=== PATIENT | female | born 1995 | race Caucasian/White ===

== ENCOUNTER 2019-11-28 10:00 | Emergency (ER) | payer BC, SELFPAY ==
--- OUTSIDE RECORDS SUMMARY | 2019-11-28 10:02 | XMS REPORT ---
:1995 Author Organization [facility] Address [address] [place] [address] Dr. Peters [address] [place] [address] Care Team Providers Name Role Phone Unavailable Unavailable Unavailable Problems This patient has no known problems. Allergies, Adverse Reactions, Alerts This patient has no known allergies or adverse reactions. Medications This patient has no known medications.
--- OUTSIDE RECORDS SUMMARY | 2019-11-28 10:02 | XMS REPORT | Summary of Care ---
:1995 Author Organization [facility] - Health Address [address] [place] [address] Care Team Providers Name Role Phone Shireen Bob Primary Care Provider Encounter Details Date Type Department Care Team Description 05/16/2019 Orders Only [facility] Doctor Unassigned, No [address] [facility] Name [place] [id number] [address] [place] [phone] Allergies Active Allergy Reactions Severity Noted Date Comments Morphine Hives, Swelling 11/06/2011 documented as of this encounter (statuses as of 05/16/2019) Medications Medication Sig Dispensed Refills Start Date End Date Status levonorgestrel by Intrauterine 0 Active (MIRENA INTRAUTERINE) route. documented as of this encounter (statuses as of 05/16/2019) Active Problems Problem Noted Date Hematoma and contusion of liver 11/06/2011 Overview: ICD10 Diagnosis Term Manager Clinical Research Utility Liver mass, left lobe 11/06/2011 documented as of this encounter (statuses as of 05/16/2019) Social History Tobacco Use Types Packs/Day Years Used Date Never Smoker Smokeless Tobacco: Never Used Alcohol Use Drinks/Week oz/Week Comments Yes occasional Sex Assigned at Date Recorded Not on file Job Start Date Occupation Industry Not on file Not on file Not on file Travel History Travel Start Travel End No recent travel history available. documented as of this encounter Last Filed Vital Signs Not on filedocumented in this encounter Plan of Treatment Health Maintenance Due Date Last Done Comments HPV VACCINES (1 - Female 3-dose 2008 series) DTaP,Tdap,and Td Vaccines (1 - 2012 Tdap) PAP SMEAR 2014 INFLUENZA VACCINE 06/10/2019 PNEUMOCOCCAL 0-64 YEARS COMBINED Aged Out No longer eligible based on SERIES patient's age to complete this topic documented as of this encounter Procedures Procedure Name Priority Date/Time Associated Diagnosis Comments NO SHOW OR MISSED Routine 05/16/2019 8:24 AM APPOINTMENT POLICY CDT ACKNOWLEDGEMENT documented in this encounter Results Not on filedocumented in this encounter
--- OUTSIDE RECORDS SUMMARY | 2019-11-28 10:02 | XMS REPORT | Summary of Care ---
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 Cuco OREILLY Well woman exam [address] [place] [address] [place] [phone] Allergies Active Allergy Reactions Severity Noted Date Comments Morphine Hives, Swelling 11/06/2011 documented as of this encounter (statuses as of 05/16/2019) Medications Medication Sig Dispensed Refills Start Date End Date Status levonorgestrel by Intrauterine 0 Active (MIRENA INTRAUTERINE) route. documented as of this encounter (statuses as of 05/16/2019) Active Problems Problem Noted Date Hematoma and contusion of liver 11/06/2011 Overview: ICD10 Diagnosis Term Architecture Faculty Member Utility Liver mass, left lobe 11/06/2011 documented as of this encounter (statuses as of 05/16/2019) Immunizations Name Administration Dates Next Due Tdap 08/16/2018 documented as of this encounter Social History Tobacco Use Types Packs/Day Years [...] of this encounter Last Filed Vital Signs Vital Sign Reading Time Taken Comments Blood Pressure 108/75 05/16/2019 8:50 AM CDT Pulse 80 05/16/2019 8:50 AM CDT Temperature 36.7 C (98.1 F) 05/16/2019 8:50 AM CDT Respiratory Rate - - Oxygen Saturation 98% 05/16/2019 8:50 AM CDT Inhaled Oxygen Concentration - - Weight 59.9 kg (132 lb) 05/16/2019 8:50 AM CDT Height 170.2 cm (5' 7") 05/16/2019 8:50 AM CDT Body Mass Index 20.67 05/16/2019 8:50 AM CDT documented in this encounter Patient Instructions Patient InstructionsShireen Bob PA - 05/16/2019 8:20 AM CDT Understanding USDA MyPlate The USDA (U.S. Department of Agriculture) has guidelines to help you make healthy food choices. These are called MyPlate. MyPlate shows the food groups that make up healthy meals using the image of a place setting. Before you eat, think about the healthiest choices for what to put onto your plate or into your cup or bowl. To learn more about building a healthy plate, visit www.choosemyplate.gov. The food groups Fruits. Any fruit or 100% fruit juice counts as part of the Fruit Group. Fruits may be fresh, canned, frozen, or dried, and may be whole, cut-up, or pureed. Make half your plate fruits and vegetables. Vegetables. Any vegetable or 100% vegetable juice counts as a member of the Vegetable Group. Vegetables may be fresh, frozen, canned, or dried. They can be served raw or cooked and may be whole, cut-up, or mashed. Make half your plate fruits and vegetables. Grains. All foods made from grains are part of the Grains Group. These include wheat, rice, oats,cornmeal, and barley such as bread, pasta, oatmeal, cereal, tortillas, and grits. Grains should be no more than a quarter of your plate. At least half of your grains should be whole grains. Protein. This group includes meat, poultry, seafood, beans and peas, eggs, processed soy products(like tofu), nuts (including nut butters), and seeds. Make protein choices no more than a quarter ofyour plate. Meat and poultry choices should be lean or low fat. Dairy. All fluid milk products and foods made from milk that contain calcium , like yogurt and cheese, are part of the Dairy Group. (Foods that have little calcium, such as cream, butter, and cream cheese, are not part of the group.) Most dairy choices should be low-fat or fat-free. Oils. These are fats that are liquid at room temperature. They include canola , corn, olive, soybean, and sunflower oil. Foods that are mainly oil include mayonnaise, certain salad dressings, and soft margarines. You should have only 5 to 7 teaspoons of oils a day. You probably already get this muchfrom the food you eat. Date Last Reviewed: 05/10/201719998089-8868 The [employer]. [address] [place] [address]. All rights reserved. This information is not intended as a substitute for professional medical care. Always follow your healthcare professional's instructions. Aerobic Exercise for a Healthy Heart Exercise is a lot more than an energy booster and a stress reliever. It also strengthens your heart muscle, lowers your blood pressure and cholesterol, and corona calories. It can also improve your resting muscle tone, and your mood. Choose an activity that makes your heart and lungs work harder than they do when you rest or walk normally. This aerobic exercise can improve the way your heart and other muscles use oxygen. Make it fun by exercising with a friend and choosing an activity you enjoy. Here are some ideas: Walking Swimming Bicycling Stair climbing Dancing Jogging Gardening Remember, some activity is better than none. Exercise regularly If you havent been exercising regularly, get your doctors OK first. Then start slowly. Here are some tips: Begin exercising 3 times a week for 5 to 10minutes at a time. When you feel comfortable, add a few minutes each session. Slowly build up to exercising 3 to 4 times each week. Each session should last for 40 minutes, onaverage, and involve moderate- to vigorous-intensity physical activity. If you have been given nitroglycerin, be sure to carry it when you exercise. If you get chest pain (angina) when youre exercising, stop what youre doing, take your nitroglycerin, and call your doctor. Date Last Reviewed: 03/11/201619994888-7851 [employer]. [address] [place] [address]. All rights reserved. This information is not intended as a substitute for professional medical care. Always follow your healthcare professional's instructions. documented in this encounter Progress Notes Shireen Bob PA - 05/16/2019 8:20 AM CDT Cc: Chief Complaint Patient presents with ANNUAL EXAM Lili Ortiz is a 23 year old female. Annual wellness visit: Describes diet: Am- scrambled eggs, toast Lunch- sandwiches Dinner- chicken, steak; sides: veggies, mac n cheese Exercise frequency: No set routine. Last STEREO OPERATOR exam/pap smear: 5 years ago. Wood Strip Block Floor Installer: Dr. Batista. LMP: 05/14/19. Contraception: IUD. STD screening consent?: No Last mammogram: never Last colonoscopy: never. Candidate for Hep C screening based on year?: no. Candidate for shingles vaccine?: no. Candidate for pneumococcal vaccine?: no. Candidate for Tdap?: 08/2018 Domestic/relationship violence screen is negative Depression screen: PHQ-2 Little interest or pleasure in doing things: Not at all Feeling down, depressed, or hopeless: Not at all PHQ-2 Score (_/6): 0 PHQ-2 Scoring Interpretation: Negative screen Accepts referral for skin cancer screening exam with a Lavender Farm Worker?: no Patient needing form completed for [facility] health program (sonography). Denies pmh of CVD, asthma, diabetes, epilepsy, anxiety/depression Needing to confirm immunization records and required booster testing. PPD: 11/02/18 Titer testin: Negative Hb surface antibody test Negative rubella, negative measles, negative mumps Positive Varicella ab. Went to health department and received her tdap, hepatitis b and mmr vaccination. Patient will bringin vaccination records. Allergies Lili is allergic to morphine. Medications Outpatient Medications Prior to Visit Medication Sig Dispense Refill levonorgestrel (MIRENA INTRAUTERINE) by Intrauterine route. No facility-administered medications prior to visit. Histories History reviewed. No pertinent past medical history. History reviewed. No pertinent surgical history. Social History Socioeconomic History Marital status: Single Spouse name: Not on file Number of children: Not on file Years of education: Not on file Highest education level: Not on file Occupational History Not on file Social Needs Financial resource strain: Not on file Food insecurity: Worry: Not on file Inability: Not on file Transportation needs: Medical: Not on file Non-medical: Not on file Tobacco Use Smoking status: Never Smoker Smokeless tobacco: Never Used Substance and Sexual Activity Alcohol use: Yes Comment: occasional Drug use: No Sexual activity: Yes control/protection: IUD Lifestyle Physical activity: Days per week: Not on file Minutes per session: Not on file Stress: Not on file Relationships Social connections: Talks on phone: Not on file Gets together: Not on file Attends adventist service: Not on file Active member of club or organization: Not on file Attends meetings of clubs or organizations: Not on file Relationship status: Not on file Intimate partner violence: Fear of current or ex partner: Not on file Emotionally abused: Not on file Physically abused: Not on file Forced sexual activity: Not on file Other Topics Concern Not on file Social History Narrative Lives at home with daughter, parents, brothers. 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 HENT: Negative for ear pain, postnasal drip, rhinorrhea, sinus pressure, sneezing, sore throat, trouble swallowing and voice change. Eyes: Negative for pain, discharge, redness, itching and visual disturbance. Respiratory: Negative for cough, chest tightness, shortness of breath and wheezing. Cardiovascular: Negative for chest pain, palpitations and leg swelling. Gastrointestinal: Negative for abdominal pain, constipation, diarrhea, nausea and vomiting. Genitourinary: Negative for bladder incontinence, dysuria, urgency, polyuria, frequency, hematuria, flank pain and difficulty urinating. Musculoskeletal: Negative for arthralgias, back pain, gait problem, joint swelling and myalgias. Skin: Negative for color change, pallor, rash and wound. Neurological: Negative for dizziness, speech difficulty, weakness, light- headedness and headaches. Psychiatric/Behavioral: Negative for agitation, behavioral problems, confusion, decreased concentration, dysphoric mood, self-injury and suicidal ideas. The patient is not nervous/anxious. Hematological: Negative for cold intolerance and heat intolerance. Endocrine: Negative for goiter, hair loss, cold intolerance, heat intolerance, polydipsia, polyphagia, polyuria, weight gain and weight loss. Vital Signs BP 108/75 | Pulse 80 | Temp 36.7 C (98.1 F) (Tympanic) | Ht 5' 7" (1.702 m) | Wt 132 lb (59.9 kg) | SpO2 98% | BMI 20.67 kg/m Physical Exam Constitutional: She is oriented to person, place, and time. She appears well- developed and well-nourished. No distress. HENT: Head: Normocephalic and atraumatic. Right Ear: External ear normal. Left Ear: External ear normal. Nose: Nose normal. Mouth/Throat: Oropharynx is clear and moist. Eyes: Conjunctivae are normal. Neck: Normal range of motion. Neck supple. Carotid bruit is not present. No thyromegaly present. Cardiovascular: Normal rate, regular rhythm, normal heart sounds and intact distal pulses. Pulmonary/Chest: Effort normal and breath sounds normal. Abdominal: Soft. Bowel sounds are normal. She exhibits no distension. There is no tenderness. There is no rebound and no guarding. Musculoskeletal: Normal range of motion. She exhibits no edema or tenderness. Lymphadenopathy: She has no cervical adenopathy. Neurological: She is alert and oriented to person, place, and time. Skin: Skin is warm and dry. She is not diaphoretic. Psychiatric: She has a normal mood and affect. Her behavior is normal. Nursing note and vitals reviewed. Assessment/Plan Annual physical exam (primary encounter diagnosis) Plan: CBC WITH DIFF, COMP. METABOLIC PANEL (52192), LIPID PANEL (47838)(TOTAL CHOLESTEROL, TRIGLYCERIDES, HDL), CBC WITH DIFFERENTIAL Patient needing form completed for school. Need confirmatio of completing MMR, hepatitis B vaccination in order to fill out. Patient agrees to return with records. Encouraged annual eye exams Encouraged twice yearly dental exams Recommend Heart healthy diet: low fat/carb/sugar diet; increase lean meat- chicken, turkey, fish; increase vegetables/fruits ( still be careful because elevated sugar level) Recommend Heart Healthy Exercise: total of 150 minutes of cardio: walking, swimming, hiking, biking every week. 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 Er precautions given. Pt reportsunderstanding and agrees. rtc if s/s worsen or do not improve; Plan of care, desired health behaviors, goals, Ddx, & any prescribed or OTC medications discussed with patient. Education resources & self management tools provided and reviewed with AVS. Patient/guardian/family verbalized understanding & agrees to plan of care. Barriers to care: NONE Ability to manage care: Good This visit did not involve counseling and coordination that comprised more than 50% of the visit time.Electronically signed by Shireen Bob PA at 2018 11:50 AM CDTdocumented in this encounter Plan of Treatment Name Type Priority Associated Diagnoses Order Schedule CBC WITH DIFF LAB Routine Annual physical exam Ordered: 05/16/2019 COMP. METABOLIC PANEL (98365) LAB Routine Annual physical exam Ordered: 04/2019 LIPID PANEL (90758)(TOTAL LAB Routine Annual physical exam Ordered: 2018 CHOLESTEROL, TRIGLYCERIDES, HDL) CBC WITH DIFFERENTIAL LAB Routine Annual physical exam Ordered: 05/16/2019 Health Maintenance Due Date Last Done Comments HPV VACCINES (1 - Female 3-dose 2008 series) DTaP,Tdap,and Td Vaccines (1 - 2012 Tdap) PAP SMEAR 2014 INFLUENZA VACCINE 06/10/2019 PNEUMOCOCCAL 0-64 YEARS COMBINED Aged Out No longer eligible based on SERIES patient's age to complete this topic documented as of this encounter Results Not on filedocumented in this encounter Visit Diagnoses Diagnosis Annual physical exam - Primary Routine general medical examination at a health care facility Well woman exam Routine general medical examination at a health care facility documented in this encounter Insurance Payer Benefit Plan Subscriber ID Effective Dates Phone Address Type / Group [place] [employer] [id number] 2018-Leny [phone] [address] PPO/POS [place] t [address] [id number] [place] [address] documented as of this encounter
--- OUTSIDE RECORDS SUMMARY | 2019-11-28 10:02 | XMS REPORT | Summary of Care ---
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 [place] [address] [place] [phone] Allergies Active Allergy Reactions [...] of liver 11/06/2011 Overview: ICD10 Diagnosis Term Sound Cutter Utility Liver mass, left lobe 11/06/2011 documented [...] the food you eat. Date Last Reviewed: 05/10/201719997444-2798 [employer]. [address] [place] [address]. All rights reserved. This information is not [...] and call your doctor. Date Last Reviewed: 03/11/201619999355-7363 [employer]. [address] [place] [address]. All rights reserved. This information is not [...] cheese Exercise frequency: No set routine. Last ASSISTANT COUNTY ENGINEER exam/pap smear: 5 years ago. Museum Exhibit Technician: Dr. Batista. LMP: 05/14/19. Contraception: IUD. STD [...] for skin cancer screening exam with a Training Manager?: no Patient needing form completed for [facility] health program (sonography). 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 [...] physical exam Ordered: 05/16/2019 COMP. METABOLIC PANEL (36196) LAB Routine Annual physical exam Ordered: 04/2019 LIPID PANEL (21219)(TOTAL LAB Routine Annual physical exam Ordered: 2018 [...] Type / Group [place] [id number] 2018-Leny [phone] [address] PPO/POS [place] t [address] [id number] [place] [address] documented as of this encounter
[2019-11-28 10:47] LABS: Absolute Lymphocytes (CBC) 1.7 K/uL (0.7-4.9); Basophils % 0.6 % (0-1.3); Hematocrit 44.4 % (36.0-45.0); MPV 9.7 fL (7.6-11.3); RBC Red Blood Cell Count 4.99 M/uL (3.86-4.86)
[2019-11-28] MEDS ORDERED: NA CHLORIDE 0.9% 1,000 ML ONE (10:51)
[2019-11-28 11:02] LABS: BUN Blood Urea Nitrogen 14 mg/dL (7-18); Bicarbonate 27 mmol/L (21-32); Glucose Level 85 mg/dL (74-106); Potassium 3.7 mmol/L (3.5-5.1); Sodium Level 140 mmol/L (136-145)
[2019-11-28 11:40] LABS: Urine Blood 1+ (NEG); Urine Glucose NEGATIVE (NEG); Urine Protein NEGATIVE (NEG); Urine Specific Gravity >1.030 (1.005-1.030)
--- NOTE | 2019-11-28 11:54 | EDPHYS ---
Physician Documentation [facility] Name: Lili Harkins Age: 24 yrs Sex: Female : 1995 Arrival Date: 11/28/2019 Time: 10:02 Bed 18 Private MD: Yunier Ny S ED Physician Prateek Willis HPI: 11/28 10:49 This 24 yrs old Female presents to ER via Wheelchair with complaints of jr8 Passed Out Prior To Arrival. 10:49 The patient has experienced syncope, became unresponsive, collapsed. Onset: The jr8 symptoms/episode began/occurred acutely, today. Duration: This was a single episode, that lasted 30 second(s). Context: the episode(s) was witnessed, by co-worker(s), occurred at a hospital, occurred while the patient was standing. Associated signs and symptoms: The patient has no apparent associated signs or symptoms. Current symptoms: Currently, the patient is not experiencing any symptoms, the patient feels back to baseline, no decreased level of consciousness, no confusion, no dysphasia, no headache, no paralysis, no visual changes. The patient has experienced a previous episode. The patient has not recently seen a physician. Stated that she just got over influenza. 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 Stated that she was standing watching one when she became acute dizzy and diaphoretic. Passed out. Staff was with her. Woke up shortly after and was brought down to ED for evaluation. ORTHOPEDIC PODIATRIST: 10:24 LMP N/A - Irregular menses jl7 Historical: - Allergies: 10:24 Morphine; jl7 - Home Meds: 10:24 None [Active]; jl7 - PMHx: 10:24 hemangioma; jl7 - PSHx: 10:24 None; jl7 - Immunization history:: Adult Immunizations up to date. - Coronavirus screen:: The patient has NOT traveled to [place] in the past 14 days. Proceed with normal triage process as indicated. - Social history:: Smoking status: Patient denies any tobacco usage or history of. - Ebola Screening: : No symptoms or risks identified at this time. ROS: 10:49 Eyes: Negative for injury, pain, redness, and discharge, ENT: Negative for injury, jr8 pain, and discharge, Neck: Negative for injury, pain, and swelling, Cardiovascular: Negative for chest pain, palpitations, and edema, Respiratory: Negative for shortness of breath, cough, wheezing, and pleuritic chest pain, Abdomen/GI: Negative for abdominal pain, nausea, vomiting, diarrhea, and constipation, Back: Negative for injury and pain, MS/Extremity: Negative for injury and deformity, Skin: Negative for injury, rash, and discoloration. 10:49 Neuro: Positive for dizziness, syncope. Exam: 10:49 Constitutional: This is a well developed, well nourished patient who is awake, alert, jr8 and in no acute distress. Head/Face: Normocephalic, atraumatic. Eyes: Pupils equal round and reactive to light, extra-ocular motions intact. Lids and lashes normal. Conjunctiva and sclera are non-icteric and not injected. Cornea within normal limits. Periorbital areas with no swelling, redness, or edema. ENT: Nares patent. No nasal discharge, no septal abnormalities noted. Tympanic membranes are normal and external auditory canals are clear. Oropharynx with no redness, swelling, or masses, exudates, or evidence of obstruction, uvula midline. Mucous membranes moist. Neck: Trachea midline, no thyromegaly or masses palpated, and no cervical lymphadenopathy. Supple, full range of motion without nuchal rigidity, or vertebral point tenderness. No Meningismus. Cardiovascular: Regular rate and rhythm with a normal S1 and S2. No gallops, murmurs, or rubs. Normal PMI, no JVD. No pulse deficits. Respiratory: Lungs have equal breath sounds bilaterally, clear to auscultation and percussion. No rales, rhonchi or wheezes noted. No increased work of breathing, no retractions or nasal flaring. Abdomen/GI: Soft, non-tender, with normal bowel sounds. No distension or tympany. No guarding or rebound. No evidence of tenderness throughout. Back: No spinal tenderness. No costovertebral tenderness. Full range of motion. Skin: Warm, dry with normal turgor. Normal color with no rashes, no lesions, and no evidence of cellulitis. MS/ Extremity: Pulses equal, no cyanosis. Neurovascular intact. Full, normal range of motion. Neuro: Awake and alert, GCS 15, oriented to person, place, time, and situation. Cranial nerves II-XII grossly intact. Motor strength 5/5 in all extremities. Sensory grossly intact. Cerebellar exam normal. Normal gait. 11:50 ECG was reviewed by the Attending Physician. jr8 Vital Signs: 10:24 BP 124 / 87; Pulse 81; Resp 17 S; Temp 96.8(TE); Pulse Ox 99% on R/A; Weight 58.97 kg jl7 (R); Height 5 ft. 6 in. (167.64 cm) (R); 11:30 BP 120 / 68; Pulse 58; Resp 16 S; Pulse Ox 100% on R/A; jl7 12:00 BP 121 / 76; Pulse 62; Resp 17 S; Pulse Ox 100% on R/A; jl7 10:24 Body Mass Index 20.98 (58.97 kg, 167.64 cm) jl7 MDM: 10:06 Patient medically screened. jr8 11:51 Differential Diagnosis: cardiac arrhythmia, drug effect, emotional response, idiopathic jr8 syncope, , seizure, sepsis, transient ischemic attack, vasovagal episode. Data reviewed: vital signs, nurses notes, lab test result(s), EKG. Data interpreted: Pulse oximetry: on room air is 99 %. Interpretation: normal. Counseling: I had a detailed discussion with the patient and/or guardian regarding: the historical points, exam findings, and any diagnostic results supporting the discharge/admit diagnosis, lab results, the need for outpatient follow up, a family practitioner, to return to the emergency department if symptoms worsen or persist or if there are any questions or concerns that arise at home. Response to treatment: the patient's symptoms have resolved after treatment, patient is well hydrated. ED course: Patient feeling better. No dizziness or near syncope with standing. VS stable. No ECG or lab abnormalities. Will send home to continue to hydrate. If worse knows to come back . 11/28 10:23 Order name: CBC with Diff [facility] 11/28 10:23 Order name: Basic Metabolic Panel [facility] 11/28 10:23 Order name: Magnesium [facility] 11/28 10:47 Order name: Urine Dipstick--Ancillary (enter results) 11/28 10:47 Order name: Urine --Ancillary (enter results) 11/28 11:47 Order name: Urine --Ancillary (enter results) 11/28 10:23 Order name: IV; Complete Time: 11:00 [facility] 02/19 10:23 Order name: EKG; Complete Time: 10:24 11/28 10:23 Order name: EKG - Nurse/Tech; Complete Time: 11:11/28 10:24 Order name: Urine Test (obtain specimen); Complete Time: 11:11/28 10:24 Order name: Urine Dipstick-Ancillary (obtain specimen); Complete Time: : EC:50 Rate is 63 beats/min. Rhythm is regular, Normal Sinus Rhythm. QRS [place] is Normal. MT jr8 interval is normal at 134 msec. QRS interval is normal at 90 msec. QT interval is normal at 411 msec. No Q waves. T waves are Normal. No ST changes noted. Clinical impression: Normal ECG. Interpreted by me. Reviewed by me. Administered Medications: 10:45 Drug: NS 0.9% 1000 ml Route: IV; Rate: 1000 ml; Site: right antecubital; jl7 11:45 Follow up: Response: No adverse reaction; IV Status: Completed infusion; IV Intake: jl7 1000ml Disposition: 14:28 Co-signature as Attending Physician, Prateek Willis MD. rn Disposition: 11/28/19 11:53 Discharged to Home. Impression: Syncope and collapse - Vasovagal Syncope . - Condition is Stable. - Discharge Instructions: Syncope. - Medication Reconciliation Form, Thank You Letter, Antibiotic Education, Prescription Opioid Use form. - Follow up: Yunier Ny MD; When: 48 Hours; Reason: Recheck today's complaints, Continuance of care, Re-evaluation by your physician. - Problem is new. - Symptoms are resolved. Signatures: Dispatcher [employer] EDPrateek Davidson MD MD rn Roszak, Josh, PA PA jr8 Quentin Garner RN RN jl7 Corrections: (The following items were deleted from the chart) 12:37 11:53 11/28/2019 11:53 Discharged to Home. Impression: Syncope and collapse - Vasovagal jl7 Syncope . Condition is Stable. Forms are Medication Reconciliation Form, Thank You Letter, Antibiotic Education, Prescription Opioid Use. Follow up: Yunier Ny; When: 48 Hours; Reason: Recheck today's complaints, Continuance of care, Re-evaluation by your physician. Problem is new. Symptoms are resolved. jr8
--- NOTE | 2019-11-28 11:54 | ER ---
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 Transition of care: patient was not received from another setting of care. Onset of symptoms was November 28, 2019. Risk Assessment: Do you want to hurt yourself or someone else? Patient reports no desire to harm self or others. Initial Sepsis Screen: Does the patient meet any 2 criteria? No. Patient's initial sepsis screen is negative. Does the patient have a suspected source of infection? No. Patient's initial sepsis screen is negative. Care prior to arrival: None. 10:21 Method Of Arrival: Wheelchair jl7 10:21 Acuity: KAZ 3 jl7 Triage Assessment: 10:24 General: Appears in no apparent distress. uncomfortable, Behavior is calm, cooperative, jl7 appropriate for age. Pain: Denies pain. Neuro: Level of Consciousness is awake, alert, obeys commands, Oriented to person, place, time, situation. Cardiovascular: Patient's skin is warm and dry. Respiratory: Airway is patent Respiratory effort is even, unlabored, Respiratory pattern is regular, symmetrical. GI: Reports nausea. Derm: Skin is pink, warm \T\ dry. EDUCATION ASSISTANT: 10:24 LMP N/A - Irregular menses jl7 Historical: - Allergies: 10:24 Morphine; jl7 - Home Meds: 10:24 None [Active]; jl7 - PMHx: 10:24 hemangioma; jl7 - PSHx: 10:24 None; jl7 - Immunization history:: Adult Immunizations up to date. - Coronavirus screen:: The patient has NOT traveled to [place] in the past 14 days. Proceed with normal triage process as indicated. - Social history:: Smoking status: Patient denies any tobacco usage or history of. - Ebola Screening: : No symptoms or risks identified at this time. Screenin:15 Abuse screen: Denies threats or abuse. Denies injuries from another. Nutritional jl7 screening: No deficits noted. Tuberculosis screening: No symptoms or risk factors identified. Fall Risk IV access (20 points). Total Monzon Fall Scale indicates No Risk (0-24 pts). Assessment: 10:15 General: See triage assessment. jl7 11:30 Reassessment: Patient appears in no apparent distress at this time. No changes from jl7 previously documented assessment. Patient and/or family updated on plan of care and expected duration. Pain level reassessed. Patient is alert, oriented x 3, equal unlabored respirations, skin warm/dry/pink. Vital Signs: 10:24 BP 124 / 87; Pulse 81; Resp 17 S; Temp 96.8(TE); Pulse Ox 99% on R/A; Weight 58.97 kg jl7 (R); Height 5 ft. 6 in. (167.64 cm) (R); 11:30 BP 120 / 68; Pulse 58; Resp 16 S; Pulse Ox 100% on R/A; jl7 12:00 BP 121 / 76; Pulse 62; Resp 17 S; Pulse Ox 100% on R/A; jl7 10:24 Body Mass Index 20.98 (58.97 kg, 167.64 cm) jl7 ED Course: 10:02 Patient arrived in ED. rg4 10:02 Yunier Ny MD is Private Physician. rg4 10:06 [facility]. jr8 10:06 Prateek Willis MD is Attending Physician. jr8 10:13 Quentin Garner RN is Primary Nurse. jl7 10:15 Patient has correct armband on for positive identification. Placed in gown. Bed in low jl7 position. Call light in reach. Side rails up X 1. Pulse ox on. NIBP on. Warm blanket given. 10:23 Triage completed. jl7 10:24 Arm band placed on right wrist. jl7 10:45 Initial lab(s) drawn, by il, sent to lab. Inserted saline lock: 20 gauge in right jl7 antecubital area, using aseptic technique. Blood collected. 11:52 Yunier Ny MD is Referral Physician. jr8 12:15 No provider procedures requiring assistance completed. IV discontinued, intact, jl7 bleeding controlled, No redness/swelling at site. Pressure dressing applied. Administered Medications: 10:45 Drug: NS 0.9% 1000 ml Route: IV; Rate: 1000 ml; Site: right antecubital; jl7 11:45 Follow up: Response: No adverse reaction; IV Status: Completed infusion; IV Intake: jl7 1000ml Intake: 11:45 IV: 1000ml; Total: 1000ml. jl7 Outcome: 11:53 Discharge ordered by MD. kim 12:15 Discharged to home ambulatory, with family. jl7 12:15 Condition: stable 12:15 Discharge instructions given to patient, family, Instructed on discharge instructions, follow up and referral plans. Demonstrated understanding of instructions, follow-up care. 12:20 Patient left the ED. jl7 Signatures: Adriel Batres PA PA jr8 Garcia, Rubi rg4 Quentin Garner RN RN jl7 Corrections: (The following items were deleted from the chart) 12:40 12:37 Patient left the ED. jl7 jl7
[2019-11-28 13:20] LABS: Urine Specific Gravity >1.030 (1.005-1.030)
[2019-11-28 15:07] VITALS: BP 124/87; TEMP 96.8; O2SAT 99
--- NOTE | 2019-11-29 11:12 | EKG ---
Test Date: 2019-11-28 Test Time: 11:18:06 Flatwork Assembler: [place] MEASUREMENT RESULTS: Intervals: Rate: 63 OK: 134 QRSD: 90 QT: 402 QTc: 411 [place]: P: 26 OK: 134 QRS: 57 T: 27 INTERPRETIVE STATEMENTS: Normal sinus rhythm Normal ECG No previous ECG available for comparison Electronically Signed On 11-29-19 11:11:16 TEMPERATURE REGULATOR by Gerardo Monterroso
== END 2019-11-28 12:37 | disposition home or self-care (01) ==
LOC: ER 10:00
DX: R55 Syncope and collapse (principal); Z88.6 Allergy status to analgesic agent
CPT/HCPCS: 93005; 85025; 80048; 36415; 83735; 81025 ×2; 81003; 96360; 99284; J7030

== ENCOUNTER 2023-03-10 20:37 | Emergency (ER) | payer BC ==
--- OUTSIDE RECORDS SUMMARY | 2023-03-10 20:41 | XMS REPORT | Continuity of Care Document ---
:1995 Author Organization Formerly [facility] t Address [address] [place] [address] [address] [place] [address] Care Team Providers Name Role Phone Shireen Corley Primary Care Physician TRACY_Jessica_Liliana Attending Clinician Unavailable TRACY_Akshat Attending Clinician Unavailable Alexey Yarbrough Attending Clinician Unavailable Alexey Yarbrough Attending Clinician [phone] Hugo Martin Attending Clinician Unavailable Nicholas Gonzalez Attending Clinician Unavailable Sammi Maloney RN Attending Clinician Unavailable UNKNOWN, ATTENDING Attending Clinician Unavailable Connie Flannery MD Attending Clinician Unknown, Attending Attending Clinician Unavailable Lab, [facility] I Attending Clinician Unavailable Doctor Unassigned, [place] Attending Clinician Unavailable Shireen Corley Attending Clinician SHIREEN MITCHELL Attending Clinician Unavailable Mor_Liliana Admitting Clinician Unavailable TRACY_Akshat Admitting Clinician Unavailable Alexey Yarbrough Admitting Clinician Unavailable Payers Payer Name Policy Type Policy Number Effective Date Expiration Date S gian[place] [id number] 2018 00:00:00 [place] ([place] Problems Condition Condition Condition Status Onset Resolution Last Treating Co mments Source Name Details Category Date Date Treatment Clinician Date Problem Active [facility] -13 Medical 00:00: 00 Hematoma Hematoma Disease Active Overview: Un tete and and 11-06 Formattin ity of contusion contusion 00:00: g of this [place] liver of liver 00 note Medica l might be Branch different from the original. ICD10 Diagnosis Term Embedded Developer Utility Liver Liver Disease Active Univers mass, left mass, left 11-06 it y of lobe lobe 00:00: [place] 00 Medical Branch Hyperemesi Hyperemesi Problem Active P rivia s s Medical gravidarum Gravidarum Allergies, Adverse Reactions, Alerts Allergy Allergy Status Severity Reaction(s) Onset Inactive Treating Comm ents Source Name Type Date Date Clinician Morphine Allergy Active [facility] to 02-20 Medical substanc 00:00: e 00 morphine DA Active MO HIVES,SWELLI HC A NG 02-20 [facility] [place] morphine DA Active [place] [facility] 14 [facility] [place] MORPHINE DRUG Active Hives Univers INGREDI 11-06 ity of 00:00: [place] 00 Medical Branch Morphine Propensi Active Swelling Univ ers ty to 11-06 ity of adverse 00:00: [place] reaction 00 Medical s to Branch drug Social History Social Habit Start Date Stop Date Quantity Comments Source ASSERTION 2021-01-14 University of 00:00:00 [facility] Exposure to Not sure [facility] SARS-CoV-2 [facility] (event) Branch Tobacco use and 2021-06-14 2021-06-14 Never used Universit y of exposure 00:00:00 00:00:00 [facility] Alcohol intake 2021-06-14 2021-06-14 Current drinker Unive rsity of 00:00:00 00:00:00 of alcohol [facility] (finding) [place] Alcohol Comment 2018-10-19 2018-10-19 occasional Universit y of 00:00:00 00:00:00 [facility] Sex Assigned At [birth year] Universit y of 00:00:00 00:00:00 [facility] Smoking Status Start Date Stop Date Source Never smoker [facility] Branch Medications Ordered Filled Start Stop Current Ordering Indication Dosage Frequency Signature Comments Components Source Medication Medication Date Date Medication? Clinician (SIG) Name Name levonorgest Yes by Univer s rel (MIRENA 06-14 Intrauteri it y of INTRAUTERIN 17:29: [place] route. [place] E) 23 Medical Branch levonorgest Yes by Univer s rel (MIRENA 06-14 Intrauteri it y of INTRAUTERIN 17:29: [place] route. [place] E) 23 Medical Branch Mirena Mirena No Mirena [facility] 07-07 Medical 00:00: 00 Mirena Mirena No Mirena [facility] 07-07 Medical 00:00: 00 Mirena Mirena No Mirena [facility] 07-07 Medical 00:00: 00 Mirena Mirena No Mirena [facility] 07-07 Medical 00:00: 00 Mirena Mirena No Mirena [facility] 07-07 Medical 00:00: 00 azithromyci azithromyci No azithromyc [facility] n 250 mg n 250 mg in 250 mg Me dical tablet TAKE tablet TAKE tablet 2 TABLETS 2 TABLETS TAKE 2 (500 MG) BY (500 MG) BY TABLETS ORAL ROUTE ORAL ROUTE (500 MG) ONCE DAILY ONCE DAILY BY ORAL FOR 1 DAY FOR 1 DAY ROUTE ONCE THEN 1 THEN 1 DAILY FOR TABLET (250 TABLET (250 1 DAY THEN MG) BY ORAL MG) BY ORAL 1 TABLET ROUTE ONCE ROUTE ONCE (250 MG) DAILY FOR 4 DAILY FOR 4 BY ORAL DAYS DAYS ROUTE ONCE DAILY FOR 4 DAYS benzonatate benzonatate No benzonatat [facility] 100 mg 100 mg e 100 mg Medical capsule capsule capsule dexamethaso dexamethaso No dexamethas [facility] ne 6 mg ne 6 mg one 6 mg Medic al tablet tablet tablet Elderberry Elderberry No Elderberry [facility] Medical metoclopram metoclopram No metoclopra [facility] matthieu 10 mg matthieu 10 mg mide 10 mg Medical tablet TAKE tablet TAKE tablet 1 TABLET BY 1 TABLET BY TAKE 1 MOUTH THREE MOUTH THREE TABLET BY TIMES DAILY TIMES DAILY MOUTH NEEDED NEEDED THREE FOR NAUSEA FOR NAUSEA TIMES OR VOMITING OR VOMITING DAILY NEEDED FOR NAUSEA OR VOMITING ondansetron ondansetron No ondansetro [facility] 4 mg 4 mg n 4 mg Medical disintegrat disintegrat disintegra ing tablet ing tablet ting DISSOLVE 1 DISSOLVE 1 tablet TABLET TABLET DISSOLVE 1 UNDER THE UNDER THE TABLET TONGUE TONGUE UNDER THE TWICE DAILY TWICE DAILY TONGUE FOR 10 DAYS FOR 10 DAYS TWICE NEEDED NEEDED DAILY FOR 10 DAYS NEEDED ondansetron ondansetron No ondansetro [facility] HCl 4 mg HCl 4 mg n HCl 4 mg M edical tablet Take tablet Take tablet 1 tablet 1 tablet Take 1 every 6 every 6 tablet hours by hours by every 6 oral route oral route hours by as needed. as needed. oral route as needed. azithromyci azithromyci No azithromyc [facility] n 250 mg n 250 mg in 250 mg Me dical tablet TAKE tablet TAKE tablet 2 TABLETS 2 TABLETS TAKE 2 (500 MG) BY (500 MG) BY TABLETS ORAL ROUTE ORAL ROUTE (500 MG) ONCE DAILY ONCE DAILY BY ORAL FOR 1 DAY FOR 1 DAY ROUTE ONCE THEN 1 THEN 1 DAILY FOR TABLET (250 TABLET (250 1 DAY THEN MG) BY ORAL MG) BY ORAL 1 TABLET ROUTE ONCE ROUTE ONCE (250 MG) DAILY FOR 4 DAILY FOR 4 BY ORAL DAYS DAYS ROUTE ONCE DAILY FOR 4 DAYS benzonatate benzonatate No benzonatat [facility] 100 mg 100 mg e 100 mg Medical capsule capsule capsule dexamethaso dexamethaso No dexamethas [facility] ne 6 mg ne 6 mg one 6 mg Medic al tablet tablet tablet Elderberry Elderberry No Elderberry [facility] metoclopram metoclopram No metoclopra [facility] matthieu 10 mg matthieu 10 mg mide 10 mg Medical tablet TAKE tablet TAKE tablet 1 TABLET BY 1 TABLET BY TAKE 1 MOUTH THREE MOUTH THREE TABLET BY TIMES DAILY TIMES DAILY MOUTH NEEDED NEEDED THREE FOR NAUSEA FOR NAUSEA TIMES OR VOMITING OR VOMITING DAILY NEEDED FOR NAUSEA OR VOMITING ondansetron ondansetron No ondansetro [facility] 4 mg 4 mg n 4 mg Medical disintegrat disintegrat disintegra ing tablet ing tablet ting DISSOLVE 1 DISSOLVE 1 tablet TABLET TABLET DISSOLVE 1 UNDER THE UNDER THE TABLET TONGUE TONGUE UNDER THE TWICE DAILY TWICE DAILY TONGUE FOR 10 DAYS FOR 10 DAYS TWICE NEEDED NEEDED DAILY FOR 10 DAYS NEEDED ondansetron ondansetron No ondansetro [facility] HCl 4 mg HCl 4 mg n HCl 4 mg M edical tablet Take tablet Take tablet 1 tablet 1 tablet Take 1 every 6 every 6 tablet hours by hours by every 6 oral route oral route hours by as needed. as needed. oral route as needed. azithromyci azithromyci No azithromyc [facility] n 250 mg n 250 mg in 250 mg Me dical tablet TAKE tablet TAKE tablet 2 TABLETS 2 TABLETS TAKE 2 (500 MG) BY (500 MG) BY TABLETS ORAL ROUTE ORAL ROUTE (500 MG) ONCE DAILY ONCE DAILY BY ORAL FOR 1 DAY FOR 1 DAY ROUTE ONCE THEN 1 THEN 1 DAILY FOR TABLET (250 TABLET (250 1 DAY THEN MG) BY ORAL MG) BY ORAL 1 TABLET ROUTE ONCE ROUTE ONCE (250 MG) DAILY FOR 4 DAILY FOR 4 BY ORAL DAYS DAYS ROUTE ONCE DAILY FOR 4 DAYS benzonatate benzonatate No benzonatat [facility] 100 mg 100 mg e 100 mg Medical capsule capsule capsule dexamethaso dexamethaso No dexamethas [facility] ne 6 mg ne 6 mg one 6 mg Medic al tablet tablet tablet Elderberry Elderberry No Elderberry [facility] metoclopram metoclopram No metoclopra [facility] matthieu 10 mg matthieu 10 mg mide 10 mg Medical tablet TAKE tablet TAKE tablet 1 TABLET BY 1 TABLET BY TAKE 1 MOUTH THREE MOUTH THREE TABLET BY TIMES DAILY TIMES DAILY MOUTH NEEDED NEEDED THREE FOR NAUSEA FOR NAUSEA TIMES OR VOMITING OR VOMITING DAILY NEEDED FOR NAUSEA OR VOMITING ondansetron ondansetron No ondansetro [facility] 4 mg 4 mg n 4 mg Medical disintegrat disintegrat disintegra ing tablet ing tablet ting DISSOLVE 1 DISSOLVE 1 tablet TABLET TABLET DISSOLVE 1 UNDER THE UNDER THE TABLET TONGUE TONGUE UNDER THE TWICE DAILY TWICE DAILY TONGUE FOR 10 DAYS FOR 10 DAYS TWICE NEEDED NEEDED DAILY FOR 10 DAYS NEEDED ondansetron ondansetron No ondansetro [facility] HCl 4 mg HCl 4 mg n HCl 4 mg M edical tablet Take tablet Take tablet 1 tablet 1 tablet Take 1 every 6 every 6 tablet hours by hours by every 6 oral route oral route hours by as needed. as needed. oral route as needed. Elderberry Elderberry No Elderberry [facility] Medical azithromyci azithromyci No azithromyc [facility] n 250 mg n 250 mg in 250 mg Me dical tablet TAKE tablet TAKE tablet 2 TABLETS 2 TABLETS TAKE 2 (500 MG) BY (500 MG) BY TABLETS ORAL ROUTE ORAL ROUTE (500 MG) ONCE DAILY ONCE DAILY BY ORAL FOR 1 DAY FOR 1 DAY ROUTE ONCE THEN 1 THEN 1 DAILY FOR TABLET (250 TABLET (250 1 DAY THEN MG) BY ORAL MG) BY ORAL 1 TABLET ROUTE ONCE ROUTE ONCE (250 MG) DAILY FOR 4 DAILY FOR 4 BY ORAL DAYS DAYS ROUTE ONCE DAILY FOR 4 DAYS benzonatate benzonatate No benzonatat [facility] 100 mg 100 mg e 100 mg Medical capsule capsule capsule dexamethaso dexamethaso No dexamethas [facility] ne 6 mg ne 6 mg one 6 mg Medic al tablet tablet tablet Elderberry Elderberry No Elderberry [facility] Medical metoclopram metoclopram No metoclopra [facility] matthieu 10 mg matthieu 10 mg mide 10 mg Medical tablet TAKE tablet TAKE tablet 1 TABLET BY 1 TABLET BY TAKE 1 MOUTH THREE MOUTH THREE TABLET BY TIMES DAILY TIMES DAILY MOUTH NEEDED NEEDED THREE FOR NAUSEA FOR NAUSEA TIMES OR VOMITING OR VOMITING DAILY NEEDED FOR NAUSEA OR VOMITING ondansetron ondansetron No ondansetro [facility] 4 mg 4 mg n 4 mg Medical disintegrat disintegrat disintegra ing tablet ing tablet ting DISSOLVE 1 DISSOLVE 1 tablet TABLET TABLET DISSOLVE 1 UNDER THE UNDER THE TABLET TONGUE TONGUE UNDER THE TWICE DAILY TWICE DAILY TONGUE FOR 10 DAYS FOR 10 DAYS TWICE NEEDED NEEDED DAILY FOR 10 DAYS NEEDED ondansetron ondansetron No ondansetro [facility] HCl 4 mg HCl 4 mg n HCl 4 mg M edical tablet Take tablet Take tablet 1 tablet 1 tablet Take 1 every 6 every 6 tablet hours by hours by every 6 oral route oral route hours by as needed. as needed. oral route as needed. Immunizations Ordered Filled Immunization Date Status Comments [facility] e Immunization Name Name Influenza Virus 2020-07-11 Completed Universit y of Vaccine Quad .5 mL 00:00:00 [facility] 6+ [place] Branch Influenza Virus 2020-07-11 Completed Universit y of Vaccine Quad .5 mL 00:00:00 [facility] 6+ [place] Branch TDAP 2018-08-16 Completed [facility] 00:00:00 [facility] TDAP 2018-08-16 [facility] 00:00:00 [facility] Vital Signs Vital Name Observation Time Observation Value Comments Source BP Diastolic 2021-09-28 00:00:00 66 mm[Hg] Irina Anglin minh BP Systolic 2021-09-28 00:00:00 112 mm[Hg] Irina Anglin konstantinerwin Body Weight 2021-09-28 00:00:00 152 [lb_av] Irina Anglin edical BP Diastolic 2021-09-25 00:00:00 60 mm[Hg] Irina Anglin edical BP Systolic 2021-09-25 00:00:00 114 mm[Hg] Irina Anglin edical Body Weight 2021-09-25 00:00:00 149 [lb_av] Irina Anglin edical BP Diastolic 2021-09-21 00:00:00 60 mm[Hg] Irina Anglin edical BP Systolic 2021-09-21 00:00:00 110 mm[Hg] Irina Anglin edical Body Weight 2021-09-21 00:00:00 148 [lb_av] Irina Anglin edical BP Diastolic 2021-09-18 00:00:00 70 mm[Hg] Irina Anglin edical BP Systolic 2021-09-18 00:00:00 118 mm[Hg] Irina Anglin edical Body Weight 2021-09-18 00:00:00 146 [lb_av] Irina Anglin edical Systolic blood 2021-06-14 17:30:00 113 mm[Hg] Univer sity of pressure [facility] Diastolic blood 2021-06-14 17:30:00 76 mm[Hg] Unive rsity of [facility] Heart rate 2021-06-14 17:30:00 77 /min [facility] Body temperature 2021-06-14 17:30:00 36.67 [facility] Respiratory rate 2021-06-14 17:30:00 16 /[facility] Body height 2021-06-14 17:30:00 167.6 cm [facility] Body weight 2021-06-14 17:30:00 58.514 kg [facility] BMI 2021-06-14 17:30:00 20.82 kg/m2 [facility] Oxygen saturation in 2021-06-14 17:30:00 100 /min [facility] Arterial blood by [facility] Pulse oximetry Branch BP Diastolic 2021-02-12 00:00:00 70 mm[Hg] Irina Anglin edical Height 2021-02-12 00:00:00 66 [in_i] Irina Anglin edical BMI (Body Mass 2021-02-12 00:00:00 21.3 kg/m2 [facility]) BP Systolic 2021-02-12 00:00:00 112 mm[Hg] Irina Anglin edical Body Weight 2021-02-12 00:00:00 132 [lb_av] Irina Anglin edical Procedures Procedure Date / Time Performed Performing Clinician Jordy perrin [id number] 2021-10-02 00:00:00 LEESH.01 [facility] [id number] 2021-10-02 00:00:00 LEESH.01 [facility] [id number] 2021-10-01 00:00:00 LEESH.01 [facility] ULTRASOUND OF FETUS 2021-09-28 00:00:00 [facility] Anglin edical ABDOMINAL ULTRASOUND OF 2021-09-21 00:00:00 [facility] Medical UTERUS (GREATER OR EQUAL TO 14 WEEKS 0 DAYS) SINGLE OR FIRST FETUS NON TO STRESS 2021-09-21 00:00:00 Irina Anglin edical TEST ULTRASOUND OF FETUS 2021-09-18 00:00:00 Irina Anglin edical ABDOMINAL ULTRASOUND OF 2021-08-31 00:00:00 [facility] UTERUS (GREATER OR EQUAL TO 14 WEEKS 0 DAYS) SINGLE OR FIRST FETUS ULTRASOUND OF 2021-02-12 00:00:00 [facility] Medical UTERUS 1 OR MORE FETUS(ES) Plan of Care Planned Activity Planned Date Details Comments Source Diagnostic Test 2021-09-18 streptococcus group B Angie via Medical Pending 00:00:00 DNA [code = streptococcus group B DNA] Encounters Start End Encounter Admission Attending Care Care Encounter Source Date/Time Date/Time Type Type Clinicians Facility Department ID 2023-03-10 2023-03-10 Outpatient GC_SWHAOMC_ PRIV PRIV [id number] [facility] 00:00:00 00:00:00 Yoan [id number] Medic al 2023-03-01 2023-03-01 Outpatient GC_SWHAOMC_ PRIV PRIV [id number] [facility] 00:00:00 00:00:00 Yoan [id number] Medic al 2023-02-28 2023-02-28 Outpatient GC_SWHAOMC_ PRIV PRIV [id number] [facility] 00:00:00 00:00:00 Yoan [id number] Medic al 2023-02-152023-02-15 Outpatient GC_SWHAOMC_ PRIV PRIV [id number] [facility] 00:00:00 00:00:00 Yoan [id number] Medic al 2022-01-07 2022-01-07 Outpatient GC_SWHAOMC_ PRIV PRIV 180 [id number] [facility] 03:40:00 03:40:00 Yoan [id number] Medic al 2021-12-19 2021-12-19 Outpatient GC_SWHATBIC PRIV PRIV [id number] [facility] 01:40:00 01:40:00 _Yoan [id number] [facility] sofya 2021-12-10 2021-12-10 Outpatient GC_SWHAOMC_ PRIV PRIV 180 [id number] [facility] 04:15:00 04:15:00 Yoan [id number] Medic al 2021-11-21 2021-11-21 Outpatient GC_SWHATBIC PRIV PRIV 180 [id number] [facility] 07:36:00 07:36:00 _Yoan [id number] [facility] 2021-11-12 2021-11-12 Outpatient GC_SWHAOMC_ PRIV PRIV [id number] [facility] 03:36:00 03:36:00 Yoan [id number] Medic al 2021-10-24 2021-10-24 Outpatient GC_SWHATBIC PRIV PRIV [id number] [facility] 03:31:00 03:31:00 _Yoan [id number] [facility] 2021-10-15 2021-10-15 Outpatient GC_SWHAOMC_ PRIV PRIV [id number] [facility] 01:52:00 01:52:00 Yona [id number] Medic al 2021-10-01 2021-10-03 Inpatient EL Zenon [facility] OB [id number] [facility] 13:49:00 22:23:00 [facility] [place] 2021-09-29 2021-09-29 Outpatient GC_SWHAOMC_ PRIV PRIV 180 [id number] [facility] 04:19:00 04:19:00 Yoan [id number] Medic al 2021-09-28 2021-09-28 Outpatient GC_SWHAOMC_ PRIV PRIV 180 [id number] [facility] 10:47:00 10:47:00 Yoan [id number] Medic al 2021-09-28 2021-09-28 Alexey [facility] [id number] [facility] 00:00:00 00:00:00 [facility] - Medic al TRACY YarbroughNORMA_ : [address], [address] [address] , Ph. 2021-09-28 2021-09-28 Outpatient Zenon, PRIV PRIV [id number] 00:00:00 00:00:00 Alexey [id number] Krishna [id number] 2021-09-26 2021-09-26 Outpatient GC_SWHATBIC PRIV PRIV [id number] [facility] 03:57:00 03:57:00 _Yoan [id number] [facility] sofya 2021-09-25 2021-09-25 Outpatient GC_SWHAOMC_ PRIV PRIV 180 [id number] [facility] 03:26:00 03:26:00 Yoan [id number] Medic al 2021-09-25 2021-09-25 Alexey [facility]IV [facility] [id number] [facility] 00:00:00 00:00:00 [facility] - Medic al Zenon MARTIN_ : [address] [place], [address], [place] [address] , Ph. 2021-09-25 2021-09-25 Outpatient Zenon, PRIV PRIV [id number] 00:00:00 00:00:00 Alexey [id number] Kirshna [id number] 2021-09-24 2021-09-24 Outpatient GC_SWHATBIC PRIV PRIV [id number] [facility] 10:35:00 10:35:00 _Yoan [id number] Medi sofya 2021-09-22 2021-09-22 Outpatient GC_SWHAOMC_ PRIV PRIV 180 [id number] [facility] 03:34:00 03:34:00 Yoan [id number] Medic al 2021-09-21 2021-09-21 Outpatient GC_SWHAOMC_ PRIV PRIV 180 [id number] [facility] 03:15:00 03:15:00 Yoan [id number] Medic al 2021-09-21 2021-09-21 Alexey [facility] [id number] [facility] 00:00:00 00:00:00 [facility] - Medic al MARTIN Yarbrough_ : [address], [address], [place] [address] , Ph. 2021-09-21 2021-09-21 Outpatient Zenon, PRIV PRIV [id number] 00:00:00 00:00:00 Alexey [id number] Krishna [id number] 2021-09-19 2021-09-19 Outpatient GC_SWHAOMC_ PRIV PRIV [id number] [facility] 01:46:00 01:46:00 Yoan [id number] Medic al 2021-09-18 2021-09-18 Outpatient GC_SWHAOMC_ PRIV PRIV [id number] [facility] 02:33:00 02:33:00 Yoan [id number] Medic al 2021-09-18 2021-09-18 Outpatient Zenon, PRIV PRIV [id number] 00:00:00 00:00:00 Alexey [id number] Krishna [id number] 2021-09-18 2021-09-18 Alexey [facility] [id number] [facility] 00:00:00 00:00:00 [facility] - Medic al MARTIN Yarbrough_ : [address], [address], [place] [address] , Ph. 2021-09-17 2021-09-17 Outpatient GC_SWHAOMC_ PRIV PRIV [id number] [facility] 10:12:00 10:12:00 Yoan [id number] Medic al 2021-09-10 2021-09-10 Emergency EM Veronica, [facility] [id number] [facility] 19:43:00 21:52:[address] 2021-09-09 2021-09-09 Emergency EM Carlos, [facility] [id number] [facility] 02:01:00 04:30:00 [facility] [place] 2021-08-31 2021-08-31 Alexey [facility] [id number] [facility] 00:00:00 00:00:00 [facility] - Medic JOHANNE More MD: [address], [address], [place] [address] , Ph. 2021-08-20 2021-08-20 Alexey [facility]IV [facility] [id number] [facility] 00:00:00 00:00:00 [facility] JOHANNE More MD: [address], [address], [place] [address] , Ph. 2021-06-15 2021-06-15 Telephone CARA Maloney [id number] Univers 00:00:00 00:00:00 Sammi VALENTINE [id number] i [facility] 4.2.7.2.686 Rei as [phone] [place] [address] Branch 2021-06-14 2021-06-14 Outpatient R UNKNOWN, [place] [id number] Univers 13:00:00 13:00:[address] [facility] 2021-06-14 2021-06-14 Urgent Connie Flannery [id number] Univers 12:25:38 12:40:38 Care Unknown, Attending Pediatric 350.1.13. 10 ity [facility] and 4.2.7.2.686 [place] [phone] [place] [address] [facility] 2021-02-22 2021-02-22 Outpatient TRACY_SWDARION_ PRIV PRIV [id number] [facility] 12:46:00 12:46:00 Yoan [id number] Medic al 2021-02-20 2021-02-20 Inpatient [facility] [id number] [facility] 11:02:19 11:02:19 [address] [facility] 2021-02-18 2021-02-18 Outpatient GC_SWHAOMC_ PRIV PRIV [id number] [facility] 01:04:00 01:04:00 Yoan [id number] Medic al 2021-02-12 2021-02-12 Outpatient GC_SWHAOMC_ PRIV PRIV [id number] [facility] 11:39:00 11:39:00 Yoan [id number] Medic al 2021-02-12 2021-02-12 Outpatient Zenon, PRIV PRIV [id number] 00:00:00 00:00:00 Alexey [id number] Krishna [id number] 2021-02-12 2021-02-12 Alexey [facility] 00:00:00 00:00:00 [facility] Medic al TRACY Yarbrough_DANIELLEC_ MD: [address] [facility] [place], [address], [place] [address] , Ph. 2021-02-03 2021-02-03 Outpatient GC_SWHAOMC_ PRIV PRIV [id number] [facility] 01:03:00 01:03:00 Yoan [id number] Medic al 2020-10-11 2020-10-11 Laboratory Lab, [facility] [id number] 08:53:29 09:13:29 Only Fam Pob I Health [id number] [place] 4.2.7.2.686 Professio [phone] nal [address] 2020-10-11 2020-10-11 Outpatient R [place] [id number] Univers 09:00:00 09:00:00 ity [facility] 2020-10-10 2020-10-10 Outpatient R [place] [id number] Univers 13:40:00 13:40:00 ity [facility] 2020-10-09 2020-10-09 Letter Doctor MARROQUIN [id number] 00:00:00 00:00:00 (Out) Unassigned, SERGE [id number] [place] [facility] [id number] 2020-08-11 2020-08-11 Outpatient R [place] [id number] Univers 11:00:00 11:00:00 [facility] 2020-08-08 2020-08-08 [facility] [id number] 13:38:36 14:51:51 Visit Shireen [facility] [id number] [place] [id number] [facility] [phone] nal 044 [address] 2020-08-08 2020-08-[address] [facility] [id number] Univers 14:40:00 14:40:00 [facility] 2020-07-18 2020-07-[address] [facility] [id number] Univers 11:00:00 11:00:00 [facility] Results Test Description Test Time Test Comments Results Result Comments Source SURGICAL 2021-10-19 14:00:00 Test Item Value Reference Range Interpretation Comme nts SURGICAL RUN (test DATE: 10/19/21 [facility] PAGE 1 RUN TIME: 1400 Specimen Inquiry RUN USER: INTERFACE code = SHIRLENE SHARPE) Marnie: LAURA HALL [id number] LOC: RONAK U #: [id number] AGE/SX: 26/F ROOM: [facility] RE10/01/21REG DR: Alexey Yarbrough MD : 93 BED: A DIS: 10/03/21 STATUS: DIS IN TLOC: SPEC #: [id number] RECD: 09/10 STATUS: DEON RE #: [id number] YOVANI: 10/02/21- SUBM DR: Alexey Yarbrough MD ENTERED: 1 12/06/20 SP TYPE: SURGICAL OTHR DR: Deepak Canchola MD, Anthony S MDORDERED: ANATOMIC SPEC, SPEC TRACK, [id number] COPIES TO: Alexey Yarbrough MD [address] [place], [place] [address] Deepak Canchola MD [address] [place], [place] [id number] Sammie Ny MD [address] [place], [place] [address] PROCEDURES: [id number] (10/05/21943) TISSUES: A. PLACENTA, THIRD TRIMESTER (28 + WEEKS) FINAL DIAGNOSIS PLACENTA, 39.2 [facility], DELIVERY:- Third-trimester placenta, 302 g.- Meconium stain.- Trivascular umbilical cord.- Decidua without pathologic alteration.- No villitis or funisitis. GROSS DESCRIPTION Received i n formalin labeled patient name, date of and "placenta" is a singletonplacenta with the p lacental disc measuring 19 x 17 x 1.8 cm and weighing 302 gm with 34 cmin length by 1.0 cm in mayte meter, centrally placed, three vessel cord with appropriatespiraling. The membranes are marroquin and tr anslucent with marginal insertion and the site ofrupture 10 cm from the placental disc. The plac ental disc has a beefy red cut surface. Thematernal surface is intact. There are blood clots on mat ernal side, 3 x 3 x 1 cm inaggregates. No lesion is identified. Abrasive Water Jet Cutter Operator sections are submitted as follow: A1. Cord and membrane CONTINUED ON NEXT PAGE RUN DATE: 10/19/21 [facility] PAGE 2 RUN TIME: 1400 Specimen Inquiry RUN USER: INTERFACE SPEC #: [id number] PATIENT: LAURA HALL #[id number] (Continued) ----- GROSS DESCRIPTION (Con tinued) A2-3. Placenta parenchyma Technical component performed at [facility],[id number], [place] [address] MICROSCOPIC DESCRIPTION The diagnosis is based upon microscopic examination. CLINICAL INFORMATION G 2 P 1, 39.2 WEEKS Signed Anne Marie Coles 0 10/19/21 1400 END OF REPORT HGB [id number] 05:59:00 Test Item Value Reference Range Interpretation Comments HEMOGLOBIN (test code = HGB) 11.6 g/dL 10.1-13.8 N HEMATOCRIT (test code = HCT) 35.0 % 32.5-41.8 N AG HEPATITIS B [id number] 16:19:00 Test Item Value Reference Range Interpretation Comments AG HEPATITIS B SURFACE (test code NONREACTIVE NONREACTIVE = HBSAG) AB HEPATITIS C [id number] 16:19:00 Test Item Value Reference Range Interpretation Comments AB HEPATITIS C (test code = NONREACTIVE NONREACTIVE HCVAB) SIGNAL TO CUTOFF (test code = <0.02 <0.80 N CUTOFF) AB [id number] 16:19:00 Test Item Value Reference Range Interpretation Comments AB TREPONEMA (test code = TREPAB) NONREACTIVE NONREACTIVE AB HIV 1 16:19:00 Test Item Value Reference Range Interpretation Comments AB HIV 1 2 (test NONREACTIVE NONREACTIVE Done by [facility] code = [id number]) 4th Gen HIV Ag/Ab Combo Screen COVID 19 Asymptomatic IH [id number] 15:26:00 Test Item Value Reference Range Interpretation Comments COVID 19 NEGATIVE NEGATIVE This test has b een Asymptomatic IH AG authorize d only for the (test code = detection ofpro teins from COVNONPUIAG) SARS-CoV-2, not for any other viruses orpathogens. Ne gative results should be treated as presumptive andconfirmed wi th a molecular assay , if necessary for patientmanageme nt. Negative result s do not rule out COVID- 19 andshould not b e used as the sole basis for treatment orpat ient management deci sions, including infec tion controldecision s. Negative result s should be considered i n thecontext of a patient's recent exposure s, history and thepresence of clinical signs and symptoms consis tent withCOVID-19. T his test has not been FD A cleared or approved; th e test hasbeen authori zesharda by FDA under an Emerge ncy Use Authorization(E UA) for use by [facility] certified under the CLIA thatmeet the re quirements to perform mode rate, high or waivedcomple xity tests. This sherlyn t is authorized for use at thePoint of Car e (POC), i.e., in patien t care settingsoperati ng under a CLIA Certificat e of Waiver, Certifi reina ofCompliance, o r Certificate of Accreditation. This test is only authori zed for the duration of thedeclaration that circumstances e xist justifying theauthorizatio n of emergency use o f in vitro diagnostic test sfor detection and/o r diagnosis of CO VID-19 under Jojilho80 4(b)(1) of the Act, 21 U.S .C. 360bbb-3(b)(1), unless theauthorizatio n is terminated or r evoked sooner. CBC W/AUTO [id number] 14:50:00 Test Item Value Reference Range Interpretation Comments WHITE BLOOD CELL (test code = WBC) 7.1 K/mm3 6.5-12.3 N RED BLOOD CELL (test code = RBC) 4.14 M/mm3 3.51-4.69 N HEMOGLOBIN (test code = HGB) 12.3 g/dL 10.1-13.8 N HEMATOCRIT (test code = HCT) 37.3 % 32.5-41.8 N MEAN CELL VOLUME (test code = MCV) 90.1 fL 84.6-96.6 N MEAN CELL HGB (test code = MCH) 29.7 pg 27.3-33.9 N MEAN CELL HGB CONCETRATION (test 33.0 gm/dL 32.0-34.2 N code = MCHC) RED CELL DISTRIBUTION WIDTH (test 14.4 % 12.2-16.3 N code = RDW) PLATELET COUNT (test code = PLT) 194 K/mm3 134-363 N MEAN PLATELET VOLUME (test code = 12.7 fL 9.2-12.7 N MPV) NEUTROPHIL % (test code = NT%) 73.7 % 57.9-77.3 N LYMPHOCYTE % (test code = LY%) 18.3 % 14.5-29.7 N MONOCYTE % (test code = MO%) 6.9 % 3.6-10.2 N EOSINOPHIL % (test code = EO%) 0.4 % 0.0-3.0 N BASOPHIL % (test code = BA%) 0.1 % 0.1-0.9 N NEUTROPHIL # (test code = NT#) 5.2 K/mm3 LYMPHOCYTE # (test code = LY#) 1.3 K/mm3 MONOCYTE # (test code = MO#) 0.5 K/mm3 EOSINOPHIL # (test code = EO#) 0.03 K/mm3 BASOPHIL # (test code = BA#) 0.0 K/mm3 RBC MORPHOLOGY REQUIRED (test code NORMAL NORMAL = RBCM) PLATELET MORPHOLOGY REQUIRED (test NORMAL NORMAL code = PLTMR) Streptococcus agalactiae DNA [Presence] in Unspecified specimen by SEBASTIEN with probe [id number] 00:00:00 Test Item Value Reference Range Interpretation Comments strep grp.B, DNA (test code = strep negative negative grp.B, DNA) [facility] MedicalStreptococcus agalactiae DNA [Presence] in Unspecified specimen by SEBASTIEN with probe [id number] 00:00:00 Test Item Value Reference Range Interpretation Comments strep grp.B, DNA (test code = strep negative negative grp.B, DNA) [facility] MedicalB-TYPE NATRIURETIC [id number] 01:40:00 Test Item Value Reference Range Interpretation Comments B-TYPE NATRIURETIC PEPTIDE (test 28.48 pg/mL 0-100 N code = BNP) BASIC METABOLIC [id number] 21:09:00 Test Item Value Reference Range Interpretation Comments SODIUM (test code = NA) 137 mEq/L 135-145 N POTASSIUM (test code = K) 3.2 mEq/L 3.5-5.0 L CHLORIDE (test code = CL) 102 mEq/L 100-115 N CARBON DIOXIDE (test code = CO2) 27 mEq/L 22-31 N ANION GAP (test code = GAP) 11.70 10-20 N GLUCOSE (test code = GLU) 84 mg/dL 65-110 N BLOOD UREA NITROGEN (test code = 8 mg/dL 7-18 N BUN) GLOMERULAR FILTRATION RATE (test 100 ml/min >60 N code = GFR) CREATININE (test code = CREAT) 0.7 mg/dL 0.5-1.0 N CALCIUM (test code = CA) 8.9 mg/dL 8.4-10.2 N LIVER [id number] 21:09:00 Test Item Value Reference Range Interpretation Comments TOTAL PROTEIN (test code = PROT) 7.4 gm/dL 6.3-8.2 N ALBUMIN (test code = ALB) 2.9 gm/dL 3.4-4.8 L BILIRUBIN TOTAL (test code = 0.6 mg/dL 0.2-1.0 N BILT) BILIRUBIN DIRECT (test code = 0.2 mg/dL <0.2 N BILD) SGOT/AST (test code = AST) 24 units/L 15-37 N SGPT/ALT (test code = ALT) 21 units/L 12-78 N ALKALINE PHOSPHATASE TOTAL (test 103 units/L 46-116 N code = ALKP) [id number] 21:09:00 Test Item Value Reference Range Interpretation Comments TROPONIN-I (test code = TROPI) <0.017 ng/mL <0.056 N CBC W/AUTO [id number] 20:58:00 Test Item Value Reference Range Interpretation Comments WHITE BLOOD CELL (test code = WBC) 7.5 K/mm3 6.5-12.3 N RED BLOOD CELL (test code = RBC) 4.22 M/mm3 3.51-4.69 N HEMOGLOBIN (test code = HGB) 12.7 g/dL 10.1-13.8 N HEMATOCRIT (test code = HCT) 38.6 % 32.5-41.8 N MEAN CELL VOLUME (test code = MCV) 91.5 fL 84.6-96.6 N MEAN CELL HGB (test code = MCH) 30.1 pg 27.3-33.9 N MEAN CELL HGB CONCETRATION (test 32.9 gm/dL 32.0-34.2 N code = MCHC) RED CELL DISTRIBUTION WIDTH (test 14.3 % 12.2-16.3 N code = RDW) PLATELET COUNT (test code = PLT) 205 K/mm3 134-363 N MEAN PLATELET VOLUME (test code = 12.1 fL 9.2-12.7 N MPV) NEUTROPHIL % (test code = NT%) 80.1 % 57.9-77.3 H LYMPHOCYTE % (test code = LY%) 13.4 % 14.5-29.7 L MONOCYTE % (test code = MO%) 6.0 % 3.6-10.2 N EOSINOPHIL % (test code = EO%) 0.1 % 0.0-3.0 N BASOPHIL % (test code = BA%) 0.0 % 0.1-0.9 L NEUTROPHIL # (test code = NT#) 6.0 K/mm3 LYMPHOCYTE # (test code = LY#) 1.0 K/mm3 MONOCYTE # (test code = MO#) 0.5 K/mm3 EOSINOPHIL # (test code = EO#) 0.01 K/mm3 BASOPHIL # (test code = BA#) 0.0 K/mm3 RBC MORPHOLOGY REQUIRED (test code NORMAL NORMAL = RBCM) PLATELET MORPHOLOGY REQUIRED (test NORMAL NORMAL code = PLTMR) - XR CHEST 1 [id number] 00:00:00 [facility] : 1995 Sex: F PatientName: LAURA HALL Unit No: [id number] EXAMS: CPT CODE: [id number] XR CHEST 1 V [id number] PROCEDURE INFORMATION: Exam: XR Chest Exam date and time: 09/10/2021 7:49 PM Age: 26 years old Clinical indication: Other: Chest pain TECHNIQUE: Imaging protocol: XR of the chest. Views: 1 view. COMPARISON: No relevant prior studies available. FINDINGS: Lungs: No focal airspace consolidation. Pleural spaces: No appreciable pleural effusion or pneumothorax. Heart/Mediastinum: The cardiomediastinal silhouette is within normal limits. Bones/joints: No acute osseous abnormality. IMPRESSION: No acute cardiopulmonary findings. at 2026 Reported and signed by: Gayatri Eugene MD CC: Hugo Martin DO Technologist: Sirisha Ni, RT,CT,MR Trnscrbd D/ (2026) GCD.CPS Orig Print D/T: S: 09/10/2021 (2026) [facility] NAME: LAURA HALL Radiology Department PHYS: Hugo Howard DO [address] : 1995 AGE: 26 SEX: F [place], [place] [address] LOC: FColletteERS PHONE #: [phone] EXAM DATE: 09/10/2021 STATUS: REG ER FAX #: [phone] RAD NO: Page 1 Signed ReportCoronavirus 2018 [id number] 03:24:00 Test Item Value Reference Range Interpretation Comments Coronavirus 2019 Positive Negative A RESULTS CA LLED TO [facility] Bedside (test MAHAREAD BACK & code = [id number]) CONFIRM ED? YESBY [id number] 09/09 0323 Positive result s are indicative of t he presence ofSARS -CoV-2 RNA; clinical c orrelation with patient hi storyand other diagnosti c information is necessary to determinepat ient infection statu s. Positive result s do not rule outbacteri al infection or co -infection with other viru ses.TEST PERFORMED UNDER AN EMERGENCY USE AUTHORIZATION F ROM FDA B-TYPE NATRIURETIC [id number] 03:17:00 Test Item Value Reference Range Interpretation Comments B-TYPE NATRIURETIC PEPTIDE (test 4.44 pg/mL 0-100 N code = BNP) COMPREHENSIVE METABOLIC [id number] 03:13:00 Test Item Value Reference Range Interpretation Comments SODIUM (test code = NA) 134 mEq/L 135-145 L POTASSIUM (test code = K) 3.2 mEq/L 3.5-5.0 L CHLORIDE (test code = CL) 101 mEq/L 100-115 N CARBON DIOXIDE (test code = CO2) 22 mEq/L 22-31 N ANION GAP (test code = GAP) 14.00 10-20 N GLUCOSE (test code = GLU) 82 mg/dL 65-110 N BLOOD UREA NITROGEN (test code = 7 mg/dL 7-18 N BUN) GLOMERULAR FILTRATION RATE (test 119 ml/min >60 N code = GFR) CREATININE (test code = CREAT) 0.6 mg/dL 0.5-1.0 N TOTAL PROTEIN (test code = PROT) 6.6 gm/dL 6.3-8.2 N ALBUMIN (test code = ALB) 2.7 gm/dL 3.4-4.8 L CALCIUM (test code = CA) 8.3 mg/dL 8.4-10.2 L BILIRUBIN TOTAL (test code = BILT) 1.0 mg/dL 0.2-1.0 N SGOT/AST (test code = AST) 17 units/L 15-37 N SGPT/ALT (test code = ALT) 12 units/L 12-78 N ALKALINE PHOSPHATASE TOTAL (test 97 units/L 46-116 N code = ALKP) [id number] 03:13:00 Test Item Value Reference Range Interpretation Comments LIPASE (test code = LIP) 127 units/L 73-393 N [id number] 03:13:00 Test Item Value Reference Range Interpretation Comments TROPONIN-I (test code = TROPI) <0.017 ng/mL <0.056 N LACTIC [id number] 03:13:00 Test Item Value Reference Range Interpretation Comments LACTIC ACID (test code = LACT) <0.3 MMOL/L 0.5-2.2 L UA RFLX MICR CULT IF [id number] 02:59:00 Test Item Value Reference Range Interpretation Comments UA COLOR (test code = COLU) YELLOW YELLOW UA APPEARANCE (test code = Slightly-Cloudy CLEAR APPU) UA GLUCOSE DIPSTICK (test NEGATIVE NEG code = DGLUU) UA BILIRUBIN DIPSTICK (test NEGATIVE NEG code = BILU) UA KETONE DIPSTICK (test code 1+ NEG A = KETU) UA SPECIFIC GRAVITY (test 1.013 1.001-1.035 N code = SGU) UA BLOOD DIPSTICK (test code NEG NEG = PARADISE) UA PH DIPSTICK (test code = 5.0 5-9 RICHARD) UA PROTEIN DIPSTICK (test NEGATIVE NEG code = PROU) UA UROBILINIOGEN DIPSTICK NEGATIVE mg/dL NEG (test code = URO) UA NITRITE DIPSTICK (test NEG NEG code = PEGGY) UA LEUKOCYTE ESTERASE TRACE NEG A DIPSTICK (test code = LEUU) UA WBC (test code = WBCU) 3-5 #/hpf NONE SEEN A UA RBC (test code = RBCU) 3-5 #/hpf NONE SEEN A UA EPITHELIAL CELLS (test RARE #/HPF RARE-FEW code = EPIU) UA BACTERIA (test code = RARE /HPF RARE-FEW BACU) UA MUCUS (test code = MUCU) RARE NONE SEEN Indication for culture: Flank PainSpecimen Description: CLEAN CATCHPROTHROMBIN [id number] 02:59:00 Test Item Value Reference Range Interpretation Comments PROTHROMBIN TIME PATIENT (test code 11.5 secs 10.1-12.3 N = PTP) IS PATIENT ON ANTICOAGULANTS ? NINTERNATIONAL NORMAL [id number] 02:59:00 Test Item Value Reference Range Interpretation Comments INTERNATIONAL NORMAL 1.04 The INR is to be used RATIO (test code = INR) only for monitoring oral anticoagulantth erapy. INDICATION INR VALUE 1. Prophylaxis inc luding high risk surge ry 2.0 - 2.52. Deep veno us thrombosis. Pul monary embolism. Atria l fibrillation or bioprosthetic h eart valves 2.0 - 3. 03. Mechanical hear t valves or recurrent sy stemic embolism. 3.0 - 3.5 IS PATIENT ON ANTICOAGULANTS ? NTHROMBOPLASTIN TIME [id number] 02:59:00 Test Item Value Reference Range Interpretation Comments THROMBOPLASTIN TIME PARTIAL (test 33.2 secs 22-38 N code = PTT) IS PATIENT ON ANTICOAGULANTS ? NCBC W/AUTO [id number] 02:44:00 Test Item Value Reference Range Interpretation Comments WHITE BLOOD CELL (test code = WBC) 8.4 K/mm3 6.5-12.3 N RED BLOOD CELL (test code = RBC) 3.84 M/mm3 3.51-4.69 N HEMOGLOBIN (test code = HGB) 11.7 g/dL 10.1-13.8 N HEMATOCRIT (test code = HCT) 34.5 % 32.5-41.8 N MEAN CELL VOLUME (test code = MCV) 89.8 fL 84.6-96.6 N MEAN CELL HGB (test code = MCH) 30.5 pg 27.3-33.9 N MEAN CELL HGB CONCETRATION (test 33.9 gm/dL 32.0-34.2 N code = MCHC) RED CELL DISTRIBUTION WIDTH (test 14.3 % 12.2-16.3 N code = RDW) PLATELET COUNT (test code = PLT) 168 K/mm3 134-363 N MEAN PLATELET VOLUME (test code = 12.2 fL 9.2-12.7 N MPV) NEUTROPHIL % (test code = NT%) 84.7 % 57.9-77.3 H LYMPHOCYTE % (test code = LY%) 8.5 % 14.5-29.7 L MONOCYTE % (test code = MO%) 6.2 % 3.6-10.2 N EOSINOPHIL % (test code = EO%) 0.0 % 0.0-3.0 N BASOPHIL % (test code = BA%) 0.1 % 0.1-0.9 N NEUTROPHIL # (test code = NT#) 7.2 K/mm3 LYMPHOCYTE # (test code = LY#) 0.7 K/mm3 MONOCYTE # (test code = MO#) 0.5 K/mm3 EOSINOPHIL # (test code = EO#) 0 K/mm3 BASOPHIL # (test code = BA#) 0.0 K/mm3 RBC MORPHOLOGY REQUIRED (test code NORMAL NORMAL = RBCM) PLATELET MORPHOLOGY REQUIRED (test NORMAL NORMAL code = PLTMR) - XR CHEST 1 [id number] 00:00:00 [facility] : 1995 Sex: F PatientName: LAURA HALL Unit No: [id number] EXAMS: CPT CODE: [id number] XR CHEST 1 V [id number] PROCEDURE INFORMATION: Exam: XR Chest Exam date and time: 09/09/2021 2:48 AM Age: 26 years old Clinical indication: Fever; Additional info: Code sepsis TECHNIQUE: Imaging protocol: XR of the chest. Views: 1 view. COMPARISON: No relevant prior studies available. FINDINGS: Lungs: Unremarkable. No consolidation. Pleural spaces: Unremarkable. No pleural effusion. No pneumothorax. Heart/Mediastinum: Unremarkable. No cardiomegaly. Bones/joints: Unremarkable. IMPRESSION: No acute findings. at 0318 Reported and signed by: Manas Macias MD CC: Technologist: RT Alida Trnscrbd D/ (031) [email or web address] Orig Print D/T: S: 09/09/2021 (0318) [facility] NAME: LAURA HALL Radiology Department PHYS: YESI GonzalezNicholas Webster [address] : 1995 AGE: 26 SEX: F [place], [place] [address] LOC: HemaERS PHONE #: [phone] EXAM DATE: 09/09/2021 STATUS: REG ER FAX #: [phone] RAD NO: Page 1 Signed ReportUA RFLX MICR CULT IF INDICATED 2021-02-20 12:26:00 Test Item Value Reference Range Interpretation Comments UA COLOR (test code = COLU) YELLOW YELLOW UA APPEARANCE (test code = Slightly-Cloudy CLEAR APPU) UA GLUCOSE DIPSTICK (test NEGATIVE NEG code = DGLUU) UA BILIRUBIN DIPSTICK (test NEGATIVE NEG code = BILU) UA KETONE DIPSTICK (test code 1+ NEG A = KETU) UA SPECIFIC GRAVITY (test 1.024 1.001-1.035 N code = SGU) UA BLOOD DIPSTICK (test code NEG NEG = PARADISE) UA PH DIPSTICK (test code = 5.0 5-9 RICHARD) UA PROTEIN DIPSTICK (test NEGATIVE NEG code = PROU) UA UROBILINIOGEN DIPSTICK 2.0 mg/dL NEG (test code = URO) UA NITRITE DIPSTICK (test NEG NEG code = PEGGY) UA LEUKOCYTE ESTERASE NEG NEG DIPSTICK (test code = LEUU) UA WBC (test code = WBCU) 0-2 #/hpf NONE SEEN UA RBC (test code = RBCU) 0-2 #/hpf NONE SEEN UA EPITHELIAL CELLS (test RARE #/HPF RARE-FEW code = EPIU) UA MUCUS (test code = MUCU) 4+ NONE SEEN UA AMORPHOUS SEDIMENT (test RARE code = AMORU) Indication for culture: Suprapubic PainSpecimen Description: CLEAN CATCHCBC W/AUTO [id number] 12:19:00 Test Item Value Reference Range Interpretation Comments WHITE BLOOD CELL (test code = WBC) 8.7 K/mm3 6.5-12.3 N RED BLOOD CELL (test code = RBC) 4.50 M/mm3 3.51-4.69 N HEMOGLOBIN (test code = HGB) 13.3 g/dL 10.1-13.8 N HEMATOCRIT (test code = HCT) 40.5 % 32.5-41.8 N MEAN CELL VOLUME (test code = MCV) 90.0 fL 84.6-96.6 N MEAN CELL HGB (test code = MCH) 29.6 pg 27.3-33.9 N MEAN CELL HGB CONCETRATION (test 32.8 gm/dL 32.0-34.2 N code = MCHC) RED CELL DISTRIBUTION WIDTH (test 11.9 % 12.2-16.3 L code = RDW) PLATELET COUNT (test code = PLT) 261 K/mm3 134-363 N MEAN PLATELET VOLUME (test code = 12.1 fL 9.2-12.7 N MPV) NEUTROPHIL % (test code = NT%) 69.6 % 57.9-77.3 N LYMPHOCYTE % (test code = LY%) 23.1 % 14.5-29.7 N MONOCYTE % (test code = MO%) 6.2 % 3.6-10.2 N EOSINOPHIL % (test code = EO%) 0.3 % 0.0-3.0 N BASOPHIL % (test code = BA%) 0.5 % 0.1-0.9 N NEUTROPHIL # (test code = NT#) 6.0 K/mm3 LYMPHOCYTE # (test code = LY#) 2.0 K/mm3 MONOCYTE # (test code = MO#) 0.5 K/mm3 EOSINOPHIL # (test code = EO#) 0.03 K/mm3 BASOPHIL # (test code = BA#) 0.0 K/mm3 RBC MORPHOLOGY REQUIRED (test code NORMAL NORMAL = RBCM) PLATELET MORPHOLOGY REQUIRED (test NORMAL NORMAL code = PLTMR) COMPREHENSIVE METABOLIC [id number] 11:44:00 Test Item Value Reference Range Interpretation Comments SODIUM (test code = NA) 133 mEq/L 135-145 L POTASSIUM (test code = K) 3.4 mEq/L 3.5-5.0 L CHLORIDE (test code = CL) 101 mEq/L 100-115 N CARBON DIOXIDE (test code = CO2) 24 mEq/L 22-31 N ANION GAP (test code = GAP) 11.60 10-20 N GLUCOSE (test code = GLU) 79 mg/dL 65-110 N BLOOD UREA NITROGEN (test code = 11 mg/dL 7-18 N BUN) GLOMERULAR FILTRATION RATE (test 86 ml/min >60 N code = GFR) CREATININE (test code = CREAT) 0.8 mg/dL 0.5-1.0 N TOTAL PROTEIN (test code = PROT) 7.4 gm/dL 6.3-8.2 N ALBUMIN (test code = ALB) 3.7 gm/dL 3.4-4.8 N CALCIUM (test code = CA) 9.0 mg/dL 8.4-10.2 N BILIRUBIN TOTAL (test code = BILT) 1.7 mg/dL 0.2-1.0 H SGOT/AST (test code = AST) 19 units/L 15-37 N SGPT/ALT (test code = ALT) 23 units/L 12-78 N ALKALINE PHOSPHATASE TOTAL (test 72 units/L 46-116 N code = ALKP) [id number] 11:44:00 Test Item Value Reference Range Interpretation Comments LIPASE (test code = LIP) 176 units/L 73-393 N Notes Date/Time Note Provider Source 2021-10-03 10:46:00-00:[address] [facility] OB Postpart Progr Note REPORT#:[id number] REPORT STATUS: Signed DATE:10/03/21 TIME: 1046 PATIENT: LAURA HALL UNIT #: [id number] ROOM/BED: [address] : [birth year] AGE: 26 SEX: F ATTEND: Db Yarbrough MD ADM AUTHOR: Eloy Shen MD * ALL edits or amendments must be made on the Stepsss/Taxizu document * Subjective Subjective Admission EGA: Weeks: 39 Days: 1 Status/Day: post (PPD1) Patient reports: Comments: No complaints. Pain and bleeding stable. Objective General VS: Vital Signs: Date Time Temp Pulse Resp B/P B/P Pulse O2 O2 F low FiO2 Mean Ox Delivery Rate 10/03 0836 97.8 54 17 116/73 10/02 2230 86.0 10/02 2230 98.1 58 16 117/67 10/020 85.0 10/02 2130 79 114/69 10/025 85.0 10/02 2115 76 114/67 10/02 2100 77.0 10/02 2100 65 106/56 10/02 2045 86.0 10/02 2045 70 112/70 10/02 2030 88.0 10/02 2030 71 112/77 10/02 2015 91.0 10/02 2015 92 115/78 10/02 2000 92.0 10/02 2000 80 120/77 10/02 194 94.0 10/02 194 86 119/77 10/02 1930 83.0 10/02 1930 76 112/70 10/02 1915 87.0 10/02 1915 75 110/74 10/02 1900 91.0 10/02 1900 62 117/74 10/02 1845 93.0 10/02 1845 73 120/79 10/02 1831 88.0 10/02 1831 59 109/76 10/02 1815 79.0 10/02 1815 57 114/55 12/24 1801 84.0 12/24 1801 64 119/60 1224 1746 98.2 18 24 1746 89.0 24 1746 166 152/74 1224 1730 80.0 12/24 1730 77 105/65 1224 1725 72 100 12/24 1720 62 100 12/24 1717 75.0 24 1717 98.5 83 18 101/60 24 1715 75 98 1224 1714 79 93 12/24 1710 71 100 12/24 1705 60 100 12/24 1701 84.0 12/24 1701 75 109/68 1224 1700 72 100 12/24 1655 74 100 12/24 1650 60 100 1224 1646 81.0 1224 1646 61 109/63 1224 1645 60 100 12/24 1640 68 93 12/24 1635 68 99 1224 1632 78.0 24 1632 98.4 65 18 105/61 1224 1630 59 100 1224 1625 59 100 12/24 1620 62 100 12/24 1616 73.0 12/24 1616 64 101/56 1224 1615 62 100 12/24 1610 60 100 12/24 1605 64 100 12/24 1600 70.0 12/24 1600 63 96/54 100 12/24 1555 65 100 12/24 1550 64 100 12/24 1547 75.0 12/24 1547 72 104/57 12/24 1545 72 100 12/24 1540 65 100 12/24 1535 67 100 12/24 1530 69.0 12/24 1530 98.2 65 18 95/54 100 12/24 1525 61 100 12/24 1520 62 100 12/24 1516 72.0 12/24 1516 61 95/54 12/24 1515 57 100 12/24 1510 62 100 12/24 1505 64 100 12/24 1502 77.0 12/24 1502 56 102/59 12/24 1500 59 100 12/24 1455 60 100 12/24 1450 63 99 12/24 1446 90.0 12/24 1446 59 119/72 12/24 1445 64 100 12/24 1440 56 100 12/24 1435 69 100 12/24 1432 92.0 12/24 1432 63 119/77 10/02 1430 64 99 10/02 1425 60 100 10/02 1420 63 100 10/02 1415 70 100 10/02 1410 77.0 10/02 1410 98.5 63 18 102/62 100 10/02 1405 59 100 10/02 1404 84.0 10/02 1404 61 110/67 10/02 1402 85.0 10/02 1402 55 115/67 10/02 1400 54 100 10/02 1355 90.0 10/02 1355 56 116/74 100 10/02 1351 98.2 18 10/02 1351 87.0 10/02 1351 55 116/67 10/02 1350 77 100 10/02 1348 68 93 10/02 1345 61 100 10/02 1105 87.0 10/02 1105 63 112/73 PATIENT WEIGHT: Weight (lb): 150 Weight (oz): Weight (kg): 68.039 Physical Exam Lungs: No increased WOB Neuro: Exam: alert, oriented x3, normal speech Abdomen: soft, no abnormal tenderness Uterus: firm, tender Fundus: below the umbilicus Lochia: normal Lacerations: Perineal laceration(s): None Lower extremities: Edema: trace Result Findings/Data: Laboratory Tests: 10/03 0539 Hematology Hgb (10.1 - 13.8 g/dL) 11.6 Hct (32.5 - 41.8 %) 35.0 Diagnosis, Assessment Plan Diagnosis, Assessment Plan Assessment: nml progress Plan: routine care, circumcision toda y, discharge today at 1047 RPT #:[id number] END OF REPORT 2021-10-02 17:36:00-00:00 [facility] ([facility]) OB Delivery Note REPORT#:[id number] REPORT STATUS: Signed DATE:10/02/21 TIME: 1735 PATIENT: LAURA HALL UNIT #: [id number] ROOM/BED: [address] : 93 AGE: 26 SEX: F ATTEND: Senthil Yarbrough MD ADM AUTHOR: Lizzy Monzon MD * ALL edits or amendments must be made on the Steps[employer] document * OB Delivery Pre-delivery GBS status: GBS status: negative Baby A Information Baby A information Delivery date: 10/02/21 Delivery time: 1724 status: live born Wt of baby: not yet available Gender: male 1 minute: 8 5 minutes: 9 Presentation: vertex Nuchal cord Baby A Nuchal cord: no Vaginal Delivery Vaginal delivery: Labor: induced Medications/Devices used: oxytocin, cervidil Vaginal delivery: spontaneous Amniotic fluid: clear Anesthesia type: epidural anesthesia Episiotomy: none Laceration repair: no Placenta: spontaneous, expressed, intact, sent to pathology Count: correct, vag exam neg for sponges Vaginal packing: No Mother's condition: mother stable Infant's condition: stable in room Lacerations: Perineal laceration(s): None Blood Loss/Details Blood loss at delivery: <1K: no sx hypovol=no he m, 50 at 1737 RPT #:[id number] END OF REPORT 2021-10-02 09:18:00-00:00 [facility] OB Intrapart Prog Note REPORT#:[id number] REPORT STATUS: Signed DATE:10/02/21 TIME: 917 PATIENT: LAURA HALL UNIT #: [id number] ROOM/BED: [address] : 93 AGE: 26 SEX: F ATTEND: Db Yarbrough MD ADM AUTHOR: Lizzy Monzon MD * ALL edits or amendments must be made on the [employer] document * Subjective Subjective Patient reports: Patient reports: Yes coping well w/o pain meds Comments: hx briefly reviewed: prev , 7 yrs ago, 6#11; Objective Nursing Documentation Review Nursing data: The data set between the solid lines has been im ported from nursing documentation. Any exceptions have been noted be low under Provider comments. __ ROM date: ROM time: __ Provider comments on imported nursing data: [] General VS: Last Documented: Result Date Time B/P Mean 84.0 10/02 0439 B/P 108/69 10/02 0439 Temp 98.2 10/02 0439 Pulse 64 10/02 0439 Resp 16 10/01 1802 Vital Signs Date Temp Pulse Resp B/P B/P Mean Pulse Ox FiO2 10/01-10/02 97.8-98.5 57-93 16 108-115/69-75 84 .0-90.0 PATIENT WEIGHT: Weight (lb): 150 Weight (oz): Weight (kg): 68.039 Objective Cervical/ exam: Dilatation (cm): 3 Effacement (%): 60 station: - 3 presentation: cephalic Uterine activity: Monitor: toco Frequency (minutes): 3 Intensity: moderate Current oxytocin: Indication: induction Infusion rate: 4.00 Procedures: vaginal exam FHR Evaluation Baby A: Baby A baseline: 130 bpm Baby A variability: moderate 6-25 bpm Baby A accelerations: 15 X 15 Baby A decelerations: none Baby A FHR category: category 1 Result Findings/Data: Laboratory Tests: 10/01 10/01 1415 1349 Hematology WBC (6.5 - 12.3 K/mm3) 7.1 RBC (3.51 - 4.69 M/mm3) 4.14 Hgb (10.1 - 13.8 g/dL) 12.3 Hct (32.5 - 41.8 %) 37.3 MCV (84.6 - 96.6 fL) 90.1 MCH (27.3 - 33.9 pg) 29.7 MCHC (32.0 - 34.2 gm/dL) 33.0 RDW (12.2 - 16.3 %) 14.4 Plt Count (134 - 363 K/mm3) 194 MPV (9.2 - 12.7 fL) 12.7 Neut % (Auto) (57.9 - 77.3 %) 73.7 Lymph % (Auto) (14.5 - 29.7 %) 18.3 [place] % (Auto) (3.6 - 10.2 %) 6.9 Eos % (Auto) (0.0 - 3.0 %) 0.4 Baso % (Auto) (0.1 - 0.9 %) 0.1 Neut # (Auto) (K/mm3) 5.2 Lymph # (Auto) (K/mm3) 1.3 [place] # (Auto) (K/mm3) 0.5 Eos # (Auto) (K/mm3) 0.03 Baso # (Auto) (K/mm3) 0.0 Serology Treponema pallidum Ab (NONREACTIVE) NONREACTIVE Hep Bs Antigen (NONREACTIVE) NONREACTIVE Hepatitis C Antibody (NONREACTIVE) NONREACTIVE Hep C Ab Signal/Cutoff (<0.80) <0.02 HIV 1 2 Antibody (NONREACTIVE) NONREACTIVE SARS-CoV-2 Ag (Rapid) (NEGATIVE) NEGATIVE Diagnosis, Assessment Plan Free Text A P: siup at 39.3-4 w/SGA s/p cervidil last pm, now on pitocin reassuring mat/ status continue pit discussed AROM if desired to expedite labor/dila tion epidural if desires at 0921 RPT #:[id number] END OF REPORT 2021-10-01 21:20:00-00:[address] [facility] ([facility]) OB Admission / H P REPORT#:[id number] REPORT STATUS: Signed DATE:10/01/21 TIME: 2119 PATIENT: LAURA HALL UNIT #: [id number] [facility] AGE: 26 SEX: F ATTEND: Db Yarbrough MD ADM AUTHOR: Ellen Estevez MD * ALL edits or amendments must be made on the Class Central[employer]/computer document * OB History Chief complaint: scheduled induction HPI: 26yo G1@39+1 history: : 2 Term: 1 Living children: 1 Current : Admission EGA (weeks) 39 Admission EGA (days) 1 Conditions of : growth restrictio n Labs: Blood type: A Rh: positive Rubella: immune Hepatitis B: negative HIV: negative STD: negative Syphilis: currently negative GBS: negative Genetic testing: NIPT low risk Past History Alcohol Use Denies EtOH use Drug Use Denies recreational drugs Smoking status: Smoking status for patients 13 years old or old er: Never Smoker Medications: Home Medications: PNV WITH FE FUMARATE/FA () 1 TAB PO JONO Y Allergies: Coded Allergies: morphine (Intermediate, HIVES, SWELLING 02/20/21 ) Objective General VS: Last Documented: Result Date Time Temp 98.4 10/01 1802 Resp 16 10/01 1802 B/P Mean 90.0 10/01 1350 B/P 115/75 10/01 1350 Pulse 93 / 1350 Vital Signs Date Temp Pulse Resp B/P B/P Mean Pulse Ox FiO2 10/01 98.4-98.5 93 16 115/75 90.0 PATIENT WEIGHT: Weight (lb): 150 Weight (oz): Weight (kg): 68.039 Physical Exam Abdomen: gravid, soft Uterine activity: Monitor: toco Frequency (description): occasional Pelvic exam: Pelvis clinically adequate: yes Cervical/ exam: Dilatation (cm): 1 Effacement (%): 50 station: - 2 presentation: cephalic Membranes: Membranes: Intact Lower extremities: Edema: none Baby A: Baby A FHR category: category 1 Diagnosis, Assessment Plan Diagnosis, Assessment Plan Free Text A P: 26yo @39+1 with SGA (35% last ultraso und) admitted for induction. proceed with cervidil and pitocin induction Plan: induction of labor Electronically Signed by Ellen Estevez MD on 09/10 12/28 at 2126 RPT #:[id number] END OF REPORT 2021-09-10 21:31:00-00:00 [facility] ([facility]) EMERGENCY PROVIDER REPORT REPORT#:[id number] REPORT STATUS: Signed DATE:09/10/21 TIME: 2130 PATIENT: LAURA HALL UNIT #: [id number] ROOM/BED: AGE: 26 SEX: F PCP PHYS: Alexey Yarbrough MD SERVICE AUTHOR: Hugo Martin DO * ALL edits or amendments must be made on the Stepsss/computer document * HPI-General Illness Free Text HPI Notes Free Text HPI Notes onset 1 days ago, severity is 10 of 10 at its wo rse, currently 4 out of 10, nothing makes better or worse, constant dull non radiating, not sudden onset General Initial Greet Date/Time 09/10/211944 Presentation Chief Complaint Shortness of breath Associated with Denies: Congestion. Associated Other Pt denies other symptoms Review of Systems ROS Statements All systems rev neg except as marked. Complete sys rev neg except as marked. Review of Systems Constitutional Denies: Chills, Fatigue, Fever, Lethargy, Malais e, Recent wt loss, Weakness - generalized. Past Medical History - Adult Stated Complaint COV+: 36 WKS- SADLER, SOB Allergies Coded Allergies: morphine (Intermediate, HIVES, SWELLING 02/20/21 ) Home Medications Active Scripts METOCLOPRAMIDE (REGLAN) 10 MG PO TID PRN PRN ruth sea and vomiting METOCLOPRAMIDE (REGLAN) 10 MG PO TID PRN PRN na usea and vomiting #21 TABS Prov: 02/20/21 dexAMETHasone 6 MG PO DAILY dexAMETHasone 6 MG PO DAILY #4 TABS Prov: 09/09/21 BENZONATATE (TESSALON) 100 MG PO Q8H PRN PRN COU GH BENZONATATE (TESSALON) 100 MG PO Q8H PRN PRN CO UGH #30 CAPS Prov: 09/09/21 ACETAMINOPHEN (TYLENOL) 500 MG PO Q4HR ACETAMINOPHEN (TYLENOL) 500 MG PO Q4HR #30 TABS Prov: 09/09/21 Reported Medications ONDANSETRON ODT (ZOFRAN ODT) 4 MG PO Q12H PRN ID N N/V PNV WITH FE FUMARATE/FA () 1 TAB PO JONO Y AZITHROMYCIN (Z-DARREL) 250 MG PO ASDIR Calculated Suicide Risk (nurs) No risk Pt reports no significant: Past medical history, Past surgical history, Family history, Social history Smoking status: Smoking status for patients 13 years old or old er: Never Smoker Physical Exam Vital Signs Vital Signs First Documented: Result Date Time Pulse Ox 100 09/10 1946 B/P 112/76 09/10 1946 B/P Mean 88 09/10 1946 O2 Delivery Room air 09/10 1946 Temp 37.0 09/10 1946 Pulse 110 09/10 1946 Resp 18 09/10 1946 Last Documented: Result Date Time Pulse Ox 100 09/10 2250 B/P 110/70 09/10 2250 B/P Mean 83 09/10 2250 O2 Delivery Room air 09/10 2250 Temp 36.8 09/10 2250 Pulse 90 09/10 2250 Resp 18 09/10 2250 Review of Vital Signs Reviewed Physical Exam General/Const General/Const Awake, Alert MS Head Head Normocephalic Eyes Eyes PERRL Ears/Nose/Throat Ears/Nose/Throat Airway patent, Mucous membrane s moist, Pharynx NL MS Neck Neck Supple, No meningismus, Full range of juanita on, No swelling, Non-tender, No masses Resp/Chest Respiratory/Chest Breath sounds NL, Breath soun ds = bilat, No respiratory distress, No rales, No rhonchi, No wheezing Cardiovascular Cardiovascular Heart rate NL, Regular r hythm, Heart sounds NL, Cap refill not delayed, Peripheral circulation NL Abdomen/GI Abdomen/GI Soft, Non-tender, No guarding, No re bound MS Back Back Inspection NL, Painless range of motion, N on-tender, No CVA tenderness Lymphatic Lymphatic No gross adenopathy MS Upper Extrem Upper Extremity/MS Inspection NL, No swelling, Non-tender, No erythema, No deformity, Neurologic intact, Vascular intact, N o clubbing/cyanosis MS Wrist/Hand Wrist/Hand Inspection NL, No swelling, No erythema, Non-tender, No deformity, Neurologic intact, Vascular intact, No clubbing/ cyanosis MS Lower Extrem Lower Ext/Pelvis/MS Inspection NL, No swelling, Non-tender, No erythema, No deformity, Neurologic intact, Vascular intact, N o edema MS Ankle/Foot Ankle/Foot Inspection NL, No swelling, No erythema, Non-tender, No deformity, Neurologic intact, Vascular intact, No edema Skin Skin Color NL, Warm, Dry, Turgor NL Neurologic Neurologic Oriented X3, Speech NL, No motor def icits, No sensory deficits Psychiatric Psychiatric Affect NL, Mood NL, Thought content NL Interpretation Diagnostics Lab Results Interpretation Considerations Independ review imaging, Reviewed prior records Results Laboratory Tests 09/10/212032: [Embedded Image Not Available] Laboratory Tests: 09/10 Chemistry Sodium (135 - 145 mEq/L) 137 Potassium (3.5 - 5.0 mEq/L) 3.2 L Chloride (100 - 115 mEq/L) 102 Carbon Dioxide (22 - 31 mEq/L) 27 Anion Gap (10 - 20) 11.70 BUN (7 - 18 mg/dL) 8 Creatinine (0.5 - 1.0 mg/dL) 0.7 Glomerular Filtr Rate (>60 ml/min) 100 Glucose (65 - 110 mg/dL) 84 Calcium (8.4 - 10.2 mg/dL) 8.9 Total Bilirubin (0.2 - 1.0 mg/dL) 0.6 Direct Bilirubin (<0.2 mg/dL) 0.2 AST (15 - 37 units/L) 24 ALT (12 - 78 units/L) 21 Total Alk Phosphatase (46 - 116 units/L) 103 Troponin I (<0.056 ng/mL) <0.017 B-Natriuretic Peptide (0 - 100 pg/mL) 28.48 Total Protein (6.3 - 8.2 gm/dL) 7.4 Albumin (3.4 - 4.8 gm/dL) 2.9 L Hematology WBC (6.5 - 12.3 K/mm3) 7.5 RBC (3.51 - 4.69 M/mm3) 4.22 Hgb (10.1 - 13.8 g/dL) 12.7 Hct (32.5 - 41.8 %) 38.6 MCV (84.6 - 96.6 fL) 91.5 MCH (27.3 - 33.9 pg) 30.1 MCHC (32.0 - 34.2 gm/dL) 32.9 RDW (12.2 - 16.3 %) 14.3 Plt Count (134 - 363 K/mm3) 205 MPV (9.2 - 12.7 fL) 12.1 Neut % (Auto) (57.9 - 77.3 %) 80.1 H Lymph % (Auto) (14.5 - 29.7 %) 13.4 L [place] % (Auto) (3.6 - 10.2 %) 6.0 Eos % (Auto) (0.0 - 3.0 %) 0.1 Baso % (Auto) (0.1 - 0.9 %) 0.0 L Neut # (Auto) (K/mm3) 6.0 Lymph # (Auto) (K/mm3) 1.0 [place] # (Auto) (K/mm3) 0.5 Eos # (Auto) (K/mm3) 0.01 Baso # (Auto) (K/mm3) 0.0 Recent Impressions: RADIOLOGY - XR CHEST 1 V 09/10 2005 Report Impression - Status: SIGNED Entered: 09/10/20212026 IMPRESSION: No acute cardiopulmonary findings. Impression By: Darwin - Gayatri Eugene MD Lab Imaging Statement Laboratory radiographic studies reviewed and con sidered in the medical decision-making. Procedures Free Text Proc Notes Free Text Proc Notes EKG interpretation by physic gary 2045 hrs. 95 bpm normal sinus rhythm nonspecific T wave changes no STEMI axis intervals within no rmal limit Re-Evaluation MDM Re-Evaluation/Progress #1 Time of Re-Eval 2132 Re-Eval Status Improved Eval Following Treatment Pt. feels better, Condi tion improved ED Course Medication(s) Ordered Medication(s) Ordered: Central Nervous System Agents Sig/Ngoc Start time Last Medication Dose Route Stop Time Status Admin Acetaminophen 650 MG X1ED STA 09/10 1949 DC PO 09/10 Electrolytic, Caloric, And Leyda Sig/Ngoc Start time Last Medication Dose Route Stop Time Status Admin Potassium Chloride 40 MEQ X1ED STA 09/10 2130 D C PO 09/10 2131 Sodium Chloride 1,000 ML X1ED STA 09/10 2003 DC 09/10 IV 09/10 Patient Discharge Departure Vital Signs/Condition Vital Signs First Documented: Result Date Time Pulse Ox 100 09/10 1946 B/P 112/76 09/10 1946 B/P Mean 88 09/10 1946 O2 Delivery Room air 09/10 1946 Temp 37.0 09/10 1946 Pulse 110 09/10 1946 Resp 18 09/10 1946 Last Documented: Result Date Time Pulse Ox 100 09/10 2250 B/P 110/70 09/10 2250 B/P Mean 83 09/10 2250 O2 Delivery Room air 09/10 2250 Temp 36.8 09/10 2250 Pulse 90 09/10 2250 Resp 18 09/10 2250 All vital signs available at the time of this en try have been reviewed. Condition Stable, Improved Clinical Impression Clinical Impression Primary Impression: SOB (shortness of breath) Secondary Impressions: COVID-19 affecting pregna ncy in third trimester, Dehydration, Hypokalemia Time of Impression 2133 Disposition Decision Discharge )( Discharged to Home Yes )( Time 2133 )( Date 09/10/21 Discharge/Care Plan Counseled Regarding Diagnosi s, Lab results, Imaging studies, Need for follow-up, When to return to ED (Auto) Prescriptions Current Visit Scripts ALBUTEROL (PROAIR HFA 90 MCG/ACT 8.5 GM) 2 PUFF INH RTQ4H PRN PRN DYSPNEA/ WHEEZING ALBUTEROL (PROAIR HFA 90 MCG/ACT 8.5 GM) 2 PUFF INH RTQ4H PRN PRN DYSPNEA/ WHEEZING #8.5 GM Prescriptions Reviewed Risks, Benefits, Alternat kassandra treatment Patient Instructions COVID-19 Aftercare, ED Shor tness of Breath (Dyspnea), Shortness of Breath Coping Additional Instructions Call your primary care doctor or referral doctor listed below as soon as possible for follow-up appointment, retu rn for any worsening of symptoms right away to the ER. Referrals PRIMARY CARE Departure Forms ABNORMAL LABS ABNORMAL RADIOLOGY READING WORK/SCHOOL EXCUSE VARIABLE Discharge Note I have spoken with the patie nt and/or caregivers. I have explained the patient's condition, diagnoses and marilou atment plan based on the information available to me at this time. I have answered the patient's and/ or caregiver's questions and addressed any concerns. The patient and/or careg tete have as good an understanding of the patient 's diagnosis, condition and treatment plan as can be expected at this point. The vital signs have bee n stable. The patient's condition is stable and appr opriate for discharge from the emergency department. The patient will pursue further outpatient evalu ation with the primary care physician or other designated or consulting phys viviane as outlined in the discharge instructions. The patient and/or caregivers are agreeable to this plan of care and follow-up instructions have been exp lained in detail. The patient and/or caregivers have received these instructio ns in written format and have expressed an understanding of the discharge inst ructions. The patient and/or caregivers are aware that any significant change in condition or worsening of symptoms should prompt an immediate return to [facility] or the closest emergency department or a call to 1. Electronically Signed by Hugo Martin DO on 04/29 at 0119 RPT #:[id number] END OF REPORT 2021-09-09 03:41:00-00:00 [facility] ([facility]) EMERGENCY PROVIDER REPORT REPORT#:[id number] REPORT STATUS: Signed DATE:09/09/21 TIME: 0341 PATIENT: LAURA HALL UNIT #: [id number] ROOM/BED: AGE: 26 SEX: F PCP PHYS: Alxeey Yarbrough MD SERVICE AUTHOR: Nicholas Gonzalez MD * ALL edits or amendments must be made on the Stepsss/computer document * HPI-General Illness General Confirmed Patient Yes Patient Type New patient Initial Greet Date/Time 09/09/21 0201 Presentation Chief Complaint Fever, Flu-like illness Hx Obtained From Patient Sudden in Onset? Yes Onset Occurred Days ago Symptom Duration Since onset, Waxes and wanes Progression since Onset Gradually worsening Location Head (cough) Quality Aching Radiation No: Does not radiate. Severity: Onset Pain level 3 out of 10 Severity: Current Pain level 3 out of 10 Associated with Reports: Congestion, Cough, Fever. Associated Other Pt denies other symptoms Exacerbated by Moving affected area Relieved by Rest Context Immunization Status General All up to date Recent Healthcare Recent doctor visit, Recent te sting Similar Sx Previous Yes Review of Systems ROS Statements All systems rev neg except as marked. Complete sys rev neg except as marked. Review of Systems Respiratory Reports: Cough, productive. Past Medical History - Adult Stated Complaint 36 WKS ,COVID POSITIVE, COVID SYMPTONS Allergies Coded Allergies: morphine (Intermediate, HIVES, SWELLING 02/20/21 ) Home Medications Active Scripts METOCLOPRAMIDE (REGLAN) 10 MG PO TID PRN PRN ruth sea and vomiting METOCLOPRAMIDE (REGLAN) 10 MG PO TID PRN PRN na usea and vomiting #21 TABS Prov: 02/20/21 ALBUTEROL (PROAIR HFA 90 MCG/ACT 8.5 GM) 2 PUFF INH RTQ4H PRN PRN DYSPNEA/ WHEEZING ALBUTEROL (PROAIR HFA 90 MCG/ACT 8.5 GM) 2 PUFF INH RTQ4H PRN PRN DYSPNEA/ WHEEZING #8.5 GM Prov: 09/10/21 Reported Medications ONDANSETRON ODT (ZOFRAN ODT) 4 MG PO Q12H PRN ID N N/V PNV WITH FE FUMARATE/FA () 1 TAB PO JONO Y AZITHROMYCIN (Z-DARREL) 250 MG PO ASDIR Calculated Suicide Risk (nurs) No risk Review of Nursing Notes Rev avail, and agree Smoking status: Smoking status for patients 13 years old or old er: Never Smoker Physical Exam Vital Signs Vital Signs First Documented: Result Date Time Pulse Ox 99 09/09 0209 B/P 106/54 09/09 020 B/P Mean 71 09/09 209 Temp 36.7 09/09 209 Pulse 103 09/09 0209 Resp 24 09/09 020 Last Documented: Result Date Time Pulse Ox 100 09/09 040 B/P 107/69 09/09 040 B/P Mean 81 09/09 401 Temp 36.6 09/09 040 Pulse 97 09/09 040 Resp 22 09/09 040 Review of Vital Signs Reviewed Physical Exam General/Const General/Const Awake, Alert, Well appearing MS Head Head Normocephalic Ears/Nose/Throat Ears/Nose/Throat Airway patent, Mucous membrane s moist, Pharynx NL Resp/Chest Respiratory/Chest Breath sounds NL, Breath soun ds = bilat, No respiratory distress, No rales, No rhonchi, No wheezing Cardiovascular Cardiovascular Heart rate NL, Regular r hythm, Heart sounds NL, Cap refill not delayed, Peripheral circulation NL Abdomen/GI Abdomen/GI Soft, Non-tender, No guarding, No re bound Lymphatic Lymphatic No gross adenopathy MS Upper Extrem Upper Extremity/MS Inspection NL, No swelling, Non-tender, No erythema, No deformity, Neurologic intact, Vascular intact, N o clubbing/cyanosis MS Lower Extrem Lower Ext/Pelvis/MS Inspection NL, No swelling, Non-tender, No erythema, No deformity, Neurologic intact, Vascular intact, N o edema Skin Skin Color NL, Warm, Dry, Turgor NL Neurologic Neurologic Oriented X3, Speech NL, No motor def icits, No sensory deficits Psychiatric Psychiatric Affect NL, Mood NL, Thought content NL Interpretation Diagnostics Lab Results Interpretation Results Laboratory Tests 09/09/21219: [Embedded Image Not Available] Laboratory Tests: 09/09 Chemistry Sodium (135 - 145 mEq/L) 134 L Potassium (3.5 - 5.0 mEq/L) 3.2 L Chloride (100 - 115 mEq/L) 101 Carbon Dioxide (22 - 31 mEq/L) 22 Anion Gap (10 - 20) 14.00 BUN (7 - 18 mg/dL) 7 Creatinine (0.5 - 1.0 mg/dL) 0.6 Glomerular Filtr Rate (>60 ml/min) 119 Glucose (65 - 110 mg/dL) 82 Lactic Acid (0.5 - 2.2 MMOL/L) <0.3 L Calcium (8.4 - 10.2 mg/dL) 8.3 L Total Bilirubin (0.2 - 1.0 mg/dL) 1.0 AST (15 - 37 units/L) 17 ALT (12 - 78 units/L) 12 Total Alk Phosphatase (46 - 116 units/L) 97 Troponin I (<0.056 ng/mL) <0.017 B-Natriuretic Peptide (0 - 100 pg/mL) 4.44 Total Protein (6.3 - 8.2 gm/dL) 6.6 Albumin (3.4 - 4.8 gm/dL) 2.7 L Lipase (73 - 393 units/L) 127 Coagulation PT (10.1 - 12.3 secs) 11.5 INR 1.04 PTT (Marycarmen) (22 - 38 secs) 33.2 Hematology WBC (6.5 - 12.3 K/mm3) 8.4 RBC (3.51 - 4.69 M/mm3) 3.84 Hgb (10.1 - 13.8 g/dL) 11.7 Hct (32.5 - 41.8 %) 34.5 MCV (84.6 - 96.6 fL) 89.8 MCH (27.3 - 33.9 pg) 30.5 MCHC (32.0 - 34.2 gm/dL) 33.9 RDW (12.2 - 16.3 %) 14.3 Plt Count (134 - 363 K/mm3) 168 MPV (9.2 - 12.7 fL) 12.2 Neut % (Auto) (57.9 - 77.3 %) 84.7 H Lymph % (Auto) (14.5 - 29.7 %) 8.5 L [place] % (Auto) (3.6 - 10.2 %) 6.2 Eos % (Auto) (0.0 - 3.0 %) 0.0 Baso % (Auto) (0.1 - 0.9 %) 0.1 Neut # (Auto) (K/mm3) 7.2 Lymph # (Auto) (K/mm3) 0.7 [place] # (Auto) (K/mm3) 0.5 Eos # (Auto) (K/mm3) 0 Baso # (Auto) (K/mm3) 0.0 Serology SARS CoV-2 RNA Rapid SEBASTIEN (Negative) Positive *A Urines Urine Color (YELLOW) YELLOW Urine Appearance (CLEAR) Slightly-Cloudy Urine pH (5 - 9) 5.0 Ur Specific [place] (1.001 - 1.035) 1.013 Urine Protein (NEG) NEGATIVE Urine Glucose (UA) (NEG) NEGATIVE Urine Ketones (NEG) 1+ H Urine Blood (NEG) NEG Urine Nitrite (NEG) NEG Urine Bilirubin (NEG) NEGATIVE Urine Urobilinogen (NEG mg/dL) NEGATIVE Ur Leukocyte Esterase (NEG) TRACE H Urine RBC (NONE SEEN #/hpf) 3-5 H Urine WBC (NONE SEEN #/hpf) 3-5 H Ur Epithelial Cells (RARE - FEW #/HPF) RARE Urine Bacteria (RARE - FEW /HPF) RARE Urine Mucus (NONE SEEN) RARE Microbiology: Date/Time Procedure - Status Source Growth 09/09 220 Urine Culture - COMP URINE 09/09 220 Blood Culture - COMP BLOOD 09/09 220 Blood Culture Gram Stain - COMP BLOOD 09/09 220 Blood Culture - COMP BLOOD 09/09 220 Blood Culture Gram Stain - COMP BLOOD 09/09 217 Influenza Virus Type B Antigen - CAN NASOPHARG Cancelled: Auto-cancelled after 3 day s. 09/09 217 Influenza Virus Type A Antigen - CAN NASOPHARG Cancelled: Auto-cancelled after 3 day s. Recent Impressions: RADIOLOGY - XR CHEST 1 V 09/09 245 Report Impression - Status: SIGNED Entered: 09/09/2021317 IMPRESSION: No acute findings. Impression By: [email or web address] - Manas Macias MD Re-Evaluation MDM ED Course Medication(s) Ordered Medication(s) Ordered: Anti-Infective Agents Sig/Ngoc Start time Last Medication Dose Route Stop Time Status Admin Ceftriaxone Sodium 1,000 MG X1ED STA 09/09 0239 DC Sodium Chloride 100 ML IV 09/09 0308 Azithromycin 500 MG X1ED STA 09/09 0219 DC Sodium Chloride 250 ML IV 09/09 0318 Ceftriaxone Sodium 1,000 MG X1ED STA 09/09 0219 DC 09/09 Sodium Chloride 100 ML IV 09/09 024 0242 Autonomic Drugs Sig/Ngoc Start time Last Medication Dose Route Stop Time Status Admin Albuterol 2 PUFF STAT STA 09/09 0315 DC 09/09 INH 09/09 031 0345 Electrolytic, Caloric, And Leyda Sig/Ngoc Start time Last Medication Dose Route Stop Time Status Admin Potassium Chloride 40 MEQ X1ED STA 09/09 0314 D C 09/09 PO 09/09 031 0345 Sodium Chloride 1,000 ML X1ED ONE 09/09 0230 AC 09/09 IV 10/20 1829 0222 Eye, Ear, Nose And Throat (Een Sig/Ngoc Start time Last Medication Dose Route Stop Time Status Admin Oxymetazoline HCl 1 SPRAY X1ED STA 09/09 0224 D C 09/09 NASAL 09/09 022 0307 Dexamethasone Sodium 10 MG X1ED STA 09/09 022 DC 09/09 Phosphate IV 09/09 022 0243 Gastrointestinal Drugs Sig/Ngoc Start time Last Medication Dose Route Stop Time Status Admin Ondansetron HCl 4 MG X1ED STA 09/09 0239 DC IV 09/09 0240 0243 Ondansetron HCl 4 MG X1ED ONE 09/09 0230 CAN IV 09/09 0231 Respiratory Tract Agents Sig/Ngoc Start time Last Medication Dose Route Stop Time Status Admin Benzonatate 100 MG STAT STA 09/09 022 DC 12/ 1 PO 09/09 022 0308 Patient Discharge Departure Vital Signs/Condition Vital Signs First Documented: Result Date Time Pulse Ox 99 09/09 209 B/P 106/54 09/09 209 B/P Mean 71 09/09 209 Temp 36.7 09/09 209 Pulse 103 09/09 209 Resp 24 09/09 209 Last Documented: Result Date Time Pulse Ox 100 09/09 401 B/P 107/69 09/09 401 B/P Mean 81 09/09 401 Temp 36.6 09/09 401 Pulse 97 09/09 401 Resp 22 09/09 401 All vital signs available at the time of this en try have been reviewed. Condition Stable, Improved Clinical Impression Clinical Impression Primary Impression: COVID Secondary Impressions: Cough, Fever Time of Impression 341 Disposition Decision Discharge )( Discharged to Home Yes )( Time 341 )( Date 09/09/21 Discharge/Care Plan Counseled Regarding Diagnosi s, Lab results, Imaging studies, Medication changes, Prescriptions, Need for follow-up, When to retur n to ED Rx Drug Database Reviewed Yes (Auto) Prescriptions Current Visit Scripts dexAMETHasone 6 MG PO DAILY dexAMETHasone 6 MG PO DAILY #4 TABS BENZONATATE (TESSALON) 100 MG PO Q8H PRN PRN COU GH BENZONATATE (TESSALON) 100 MG PO Q8H PRN PRN CO UGH #30 CAPS ACETAMINOPHEN (TYLENOL) 500 MG PO Q4HR ACETAMINOPHEN (TYLENOL) 500 MG PO Q4HR #30 TABS Follow label instructions for pain or fever. Prescriptions Reviewed Risks, Benefits, Alternat kassandra treatment Patient Instructions ED Fever Control (Adult), E D Hypokalemia, ED Upper Resp Infec Abx Tx, Symptoms of COVID-19 Infection - V ideo Referrals Filemon Prekins MD Departure Forms WORK/SCHOOL EXCUSE VARIABLE WORK/SCHOOL EXCUSE-CAREGIVER Advance Care Planning Documents Reviewed With patient Discharge Note I have spoken with the patie nt and/or caregivers. I have explained the patient's condition, diagnoses and marilou atment plan based on the information available to me at this time. I have answered the patient's and/ or caregiver's questions and addressed any concerns. The patient and/or careg tete have as good an understanding of the patient 's diagnosis, condition and treatment plan as can be expected at this point. The vital signs have bee n stable. The patient's condition is stable and appr opriate for discharge from the emergency department. The patient will pursue further outpatient evalu ation with the primary care physician or other designated or consulting phys gianfrancoan as outlined in the discharge instructions. The patient and/or caregivers are agreeable to this plan of care and follow-up instructions have been exp lained in detail. The patient and/or caregivers have received these instructio ns in written format and have expressed an understanding of the discharge inst ructions. The patient and/or caregivers are aware that any significant change in condition or worsening of symptoms should prompt an immediate return to [facility] or the closest emergency department or a call to 911. Quality Measures BP F/U for HTN F/u with PCP/other doc 12-Lead ECG for CP Performed documented Preg Test for Women w/Abd Pain Female age 14-50 Smoking Cessation Screened, non user Tobacco Screening/Cessation 18 years or older, D enies tobacco use at 0751 RPT #:[id number] END OF REPORT 2021-09-09 02:14:00-00:00 [id number] [facility] [address] [address] PATIENT NAME: LAURA HALL ADMIT DATE: 09/09/21 ACCOUNT NO: [id number] ROOM NO: AGE: 26 SEX: F ADMITTING PHYSICIAN: ATTENDING PHYSICIAN: Nicholas Gonzalez MD Order: [id number] Test Reason : CHEST PRESSURE / CODE SEPSIS Test Date/Time Stamp: TueSep 09 2021 02:14:55 Blood Pressure : / mmHG Vent. Rate : 107 BPM Atrial Rate : 107 BPM P-R Int : 124 ms QRS Dur : 078 ms QT Int : 336 ms P-R-T Axes : 048 031 -01 degree s QTc Int : 448 ms Sinus tachycardia Nonspecific ST and T wave abnormality Abnormal ECG No previous ECGs available Confirmed by DAYANA ROSAS MD ([id number]) on 09/10/20 8:56:33 PM Referred By: DOES_NOT KNOW Confirmed by:DAYANA GROSS MD at [id number] PATIENT NAME: LAURA HALL 2021-02-20 10:25:00-00:00 [facility] ([facility]) EMERGENCY PROVIDER REPORT REPORT#:[id number] REPORT STATUS: Signed DATE:02/20/21 TIME: 1025 PATIENT: LAURA HALL UNIT #: [id number] ROOM/BED: AGE: 25 SEX: F PCP PHYS: Alexey Yarbrough MD SERVICE AUTHOR: Conrado Hernandez MD * ALL edits or amendments must be made on the Stepsss/computer document * HPI-General Illness General Initial Greet Date/Time 02/20/21 1016 Presentation Chief Complaint Vomiting Free Text HPI Notes Free Text HPI Notes 25 years old patient no past medical history 7 weeks presents complaining of several days of increasing nausea and vomiting patient reports unable to keep anything down, reports mi ld bilateral flank pain, denies fever, chills or any other complaints. Review of Systems ROS Statements All systems rev neg except as marked. Free Text ROS Notes Free Text ROS Notes CONSTITUTIONAL: Normal; negative for fev er, weight change, fatigue, or aching. HEENT: Eyes normal; negative for, irritation, or visual field defects. Ears normal; Negative for pain . Nose normal; Negative for runny nose, sinus problems , or nosebleeds. Mouth normal; Negative for dent al problems,. Throat normal; Negative for hoarseness, difficulty swallowing, or sore throat. CARDIOVASCULAR: Normal; Negative for chest pain or, high blood pressure, orthopnea, PULMONARY: Normal; Negative for cough, sputum, shortness of breath or wheezing, SKIN: Normal; Negative for rashes. MUSCULOSKELETAL: Normal; Negative for back pain, joint pain. NEUROLOGIC: Normal; Negative for blackouts, head aches, seizures or dizziness. PSYCHIATRIC: Normal; Negative for anxiety, depre ssion, or phobias. ENDOCRINE: Normal; Negative for diabetes, thyroid.HEMATOLOGIC/LYMPHATIC: Normal; Negative for anemia, swollen glands, or blood di sorders. IMMUNOLOGIC: Negative; Negative for steroids, ch emotherapy, or cancer. VASCULAR: Normal; Negative for varicose veins, b lood clots, or leg ulcers. Past Medical History - Adult Stated Complaint 7 W PREG W/HYPEREMESIS, ABD BI N Allergies Coded Allergies: morphine (Intermediate, HIVES, SWELLING 02/20/21 ) Home Medications Reported Medications ONDANSETRON ODT (ZOFRAN ODT) 4 MG PO Q12H PRN ID N N/V Review of Nursing Notes Rev avail, and agree Physical Exam Vital Signs Vital Signs First Documented: Result Date Time Pulse Ox 100 02/20 1016 B/P 119/70 02/20 1016 B/P Mean 86 02/20 1016 O2 Delivery Room air 02/20 1016 Temp 36.4 02/20 1016 Pulse 56 02/20 1016 Resp 16 02/20 1016 Last Documented: Result Date Time Pulse Ox 100 02/20 1253 B/P 102/55 02/20 1253 B/P Mean 70 02/20 1253 O2 Delivery Room air 02/20 1253 Temp 36.8 02/20 1253 Pulse 61 02/20 1253 Resp 16 02/20 1253 Review of Vital Signs Reviewed, Vital signs norm al Basic Physical Exam Basic PE GEN: Well appearing /NAD, EYES: PERRL, conj clear, ENT: Membranes moist, RESP: No resp distress, CV: Reg rate rhythm, ABD : Soft/non-tender, SKIN: No rashes, warm/dry, NEURO: alert oriented, NEURO: gross movement NL Interpretation Diagnostics Lab Results Interpretation Results Laboratory Tests 02/20/21 1048: [Embedded Image Not Available] Laboratory Tests: 02/20 02/20 1048 1023 Chemistry Sodium (135 - 145 mEq/L) 133 L Potassium (3.5 - 5.0 mEq/L) 3.4 L Chloride (100 - 115 mEq/L) 101 Carbon Dioxide (22 - 31 mEq/L) 24 Anion Gap (10 - 20) 11.60 BUN (7 - 18 mg/dL) 11 Creatinine (0.5 - 1.0 mg/dL) 0.8 Glomerular Filtr Rate (>60 ml/min) 86 Glucose (65 - 110 mg/dL) 79 Calcium (8.4 - 10.2 mg/dL) 9.0 Total Bilirubin (0.2 - 1.0 mg/dL) 1.7 H AST (15 - 37 units/L) 19 ALT (12 - 78 units/L) 23 Total Alk Phosphatase (46 - 116 units/L) 72 Total Protein (6.3 - 8.2 gm/dL) 7.4 Albumin (3.4 - 4.8 gm/dL) 3.7 Lipase (73 - 393 units/L) 176 Hematology WBC (6.5 - 12.3 K/mm3) 8.7 RBC (3.51 - 4.69 M/mm3) 4.50 Hgb (10.1 - 13.8 g/dL) 13.3 Hct (32.5 - 41.8 %) 40.5 MCV (84.6 - 96.6 fL) 90.0 MCH (27.3 - 33.9 pg) 29.6 MCHC (32.0 - 34.2 gm/dL) 32.8 RDW (12.2 - 16.3 %) 11.9 L Plt Count (134 - 363 K/mm3) 261 MPV (9.2 - 12.7 fL) 12.1 Neut % (Auto) (57.9 - 77.3 %) 69.6 Lymph % (Auto) (14.5 - 29.7 %) 23.1 [place] % (Auto) (3.6 - 10.2 %) 6.2 Eos % (Auto) (0.0 - 3.0 %) 0.3 Baso % (Auto) (0.1 - 0.9 %) 0.5 Neut # (Auto) (K/mm3) 6.0 Lymph # (Auto) (K/mm3) 2.0 [place] # (Auto) (K/mm3) 0.5 Eos # (Auto) (K/mm3) 0.03 Baso # (Auto) (K/mm3) 0.0 Urines Urine Color (YELLOW) YELLOW Urine Appearance (CLEAR) Slightly-Cloudy Urine pH (5 - 9) 5.0 Ur Specific [place] (1.001 - 1.035) 1.024 Urine Protein (NEG) NEGATIVE Urine Glucose (UA) (NEG) NEGATIVE Urine Ketones (NEG) 1+ H Urine Blood (NEG) NEG Urine Nitrite (NEG) NEG Urine Bilirubin (NEG) NEGATIVE Urine Urobilinogen (NEG mg/dL) 2.0 Ur Leukocyte Esterase (NEG) NEG Urine RBC (NONE SEEN #/hpf) 0-2 Urine WBC (NONE SEEN #/hpf) 0-2 Ur Epithelial Cells (RARE - FEW #/HPF) RARE Amorphous Sediment RARE Urine Mucus (NONE SEEN) 4+ Re-Evaluation MDM ED Course Medication(s) Ordered Medication(s) Ordered: Electrolytic, Caloric, And Leyda Sig/Ngoc Start time Last Medication Dose Route Stop Time Status Admin Sodium Chloride 1,000 ML X1ED STA 02/20 1025 DC / IV 02/20 1026 1112 Gastrointestinal Drugs Sig/Ngoc Start time Last Medication Dose Route Stop Time Status Admin Metoclopramide HCl 10 MG X1ED STA 02/20 1025 DC / IV 02/20 1026 1113 Patient Discharge Departure Vital Signs/Condition Vital Signs First Documented: Result Date Time Pulse Ox 100 02/20 1016 B/P 119/70 02/20 1016 B/P Mean 86 02/20 1016 O2 Delivery Room air 02/20 1016 Temp 36.4 02/20 1016 Pulse 56 02/20 1016 Resp 16 02/20 1016 Last Documented: Result Date Time Pulse Ox 100 02/20 1253 B/P 102/55 02/20 1253 B/P Mean 70 02/20 1253 O2 Delivery Room air 02/20 1253 Temp 36.8 02/20 1253 Pulse 61 02/20 1253 Resp 16 02/20 1253 All vital signs available at the time of this en try have been reviewed. Condition Stable, Improved Clinical Impression Clinical Impression Primary Impression: Hyperemesis gravidarum Time of Impression 1235 Disposition Decision Discharge )( Discharged to Home Yes )( Time 1235 )( Date 02/20/21 Discharge/Care Plan (Auto) Prescriptions Current Visit Scripts METOCLOPRAMIDE (REGLAN) 10 MG PO TID PRN PRN ruth sea and vomiting METOCLOPRAMIDE (REGLAN) 10 MG PO TID PRN PRN na usea and vomiting #21 TABS Patient Instructions ED Hyperemesis Gravidarum at 0922 RPT #:[id number] END OF REPORT
[2023-03-10] MEDS ORDERED: FAMOTIDINE 20 MG/2 ML VIAL IV ONE (21:48)
[2023-03-10] MEDS ORDERED: ONDANSETRON 4 MG/2 ML VIAL ONE (21:48)
[2023-03-10] MEDS ORDERED: NA CHLORIDE 0.9% 1,000 ML ONE (21:48)
[2023-03-10 21:56] LABS: Absolute Lymphocytes (CBC) 2.1 K/uL (0.7-4.9); Hematocrit 43.2 % (36.0-45.0); Lymphocytes % 23.6 % (15.3-44.8); MCV 85.4 fL (80-100); MPV 9.7 fL (7.6-11.3); RBC Red Blood Cell Count 5.06 M/uL (3.86-4.86)
[2023-03-10 22:03] LABS: Specific Gravity > 1.030 (1.005-1.030); Urine Bacteria <20 /HPF (<20); Urine Bilirubin 1+ (Negative); Urine Blood Negative (Negative); Urine Clarity Clear (Clear); Urine Color Yellow (Yellow); Urine Glucose NEGATIVE (Negative); Urine Mucus 4+ /HPF (None Seen); Urine Protein 2+ (Negative); Urine RBC <5 /HPF (None Seen); Urine Urobilinogen 1+ (Normal)
[2023-03-10 22:36] LABS: Potassium 3.6 mEq/L (3.5-5.1)
[2023-03-10] MEDS ORDERED: Ringers Lactate 1,000 ML IV ONE (23:46)
--- NOTE | 2023-03-11 00:26 | ER ---
Nurse's Notes [facility] Name: Lili Harkins Age: 27 yrs Sex: Female : 1995 Arrival Date: 03/10/2023 Time: 20:37 Bed 2 Private MD: Diagnosis: Hyperemesis gravidarum with metabolic disturbance;Other specified related conditions, first trimester Presentation: 03/10 21:12 Chief complaint: Patient states: i haven't eaten in 4 days and if i drink anything it iw comes up. i have Zofran and Phenergan at home but its not helping. my OB told me to come in because i had hyperemesis gravidarum with my last 2 pregnancies as well. Coronavirus screen: Client denies travel out of the [place] in the last 14 days. At this time, the client does not indicate any symptoms associated with coronavirus-19. Ebola Screen: No symptoms or risks identified at this time. Initial Sepsis Screen: Does the patient meet any 2 criteria? No. Patient's initial sepsis screen is negative. Does the patient have a suspected source of infection? No. Patient's initial sepsis screen is negative. Risk Assessment: Do you want to hurt yourself or someone else? Patient reports no desire to harm self or others. Onset of symptoms was March 06, 2023. 21:12 Method Of Arrival: Ambulatory iw 21:12 Acuity: KAZ 3 iw Triage Assessment: 21:16 General: Appears in no apparent distress. uncomfortable, Behavior is calm, cooperative. iw Pain: Complains of pain in abdomen. EENT: No deficits noted. No signs and/or symptoms were reported regarding the EENT system. Neuro: No deficits noted. Brandt Agitation-Sedation Scale (RASS): 0 - Alert and Calm Level of Consciousness is awake, alert, obeys commands, Oriented to person, place, time, situation. Cardiovascular: No deficits noted. Respiratory: No deficits noted. Airway is patent Respiratory effort is even, unlabored, Respiratory pattern is regular, symmetrical. GI: Reports lower abdominal pain, upper abdominal pain, cramping, intolerance of fluids, intolerance of food, nausea, vomiting. : No deficits noted. No signs and/or symptoms were reported regarding the genitourinary system. Derm: No deficits noted. No signs and/or symptoms reported regarding the dermatologic system. Skin is intact, is healthy with good turgor, Skin is dry, Skin is normal, Skin temperature is warm. Musculoskeletal: No deficits noted. No signs and/or symptoms reported regarding the musculoskeletal system. Circulation, motion, and sensation intact. Range of motion: intact in all extremities. 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 - Social history:: Smoking status: Patient denies any tobacco usage or history of. Patient/guardian denies using alcohol, street drugs. Screenin:48 [facility] ED Fall Risk Assessment (Adult) History of falling in the last 3 months, rv including since admission No falls in past 3 months (0 pts). Abuse screen: Denies threats or abuse. Denies injuries from another. Nutritional screening: No deficits noted. Tuberculosis screening: No symptoms or risk factors identified. Assessment: 21:47 General: Appears comfortable, Behavior is calm, cooperative. Pain: Denies pain. Neuro: rv Level of Consciousness is awake, alert, obeys commands, Oriented to person, place. Cardiovascular: Capillary refill < 3 seconds. Respiratory: Airway is patent Respiratory effort is even, unlabored. GI: Reports nausea, vomiting. GI: Abdomen is round non-distended, Bowel sounds present X 4 quads. Abd is soft and non tender X 4 quads. : No signs and/or symptoms were reported regarding the genitourinary system. 22:14 Reassessment: Patient appears in no apparent distress at this time. Patient and/or jb4 family updated on plan of care and expected duration. Pain level reassessed. Patient is alert, oriented x 3, equal unlabored respirations, skin warm/dry/pink. Vital Signs: 21:12 BP 107 / 81; Pulse 101; Resp 17 S; Temp 97.8(O); Pulse Ox 100% on R/A; Weight 64.86 kg iw (R); Height 5 ft. 6 in. (R); 22:14 BP 119 / 84; Pulse 73; Resp 16; Pulse Ox 97% on R/A; jb4 03/11 00:36 BP 106 / 76; Pulse 64; Resp 16; Temp 98; Pulse Ox 100% on R/A; rv 03/10 21:12 Body Mass Index 23.08 (64.86 kg, 167.64 cm) iw Yoel Coma Score: 00:37 Eye Response: spontaneous(4). Motor Response: obeys commands(6). Verbal Response: rv oriented(5). Total: 15. ED Course: 03/10 20:38 Patient arrived in ED. jj6 20:55 Hero Barnett PA is PHCP. cp 20:55 Hero Young MD is Attending Physician. cp 21:16 Triage completed. iw 21:16 Arm band placed on right wrist. iw 21:35 Mauri Porras RN is Primary Nurse. rv 21:47 Abo/rh Typing Sent. rv 21:47 Basic Metabolic Panel Sent. rv 21:47 CBC with Diff Sent. rv 21:47 Quantitative Hcg Sent. rv 21:47 Inserted saline lock: 20 gauge in right antecubital area, using aseptic technique. rv Blood collected. 21:48 Patient has correct armband on for positive identification. Placed in gown. Bed in low rv position. Call light in reach. Side rails up X 1. Client placed on continuous cardiac and pulse oximetry monitoring. NIBP monitoring applied. 03/11 00:10 US OB Limited In Process Unspecified. EDMS 00:37 No provider procedures requiring assistance completed. IV discontinued, intact, rv bleeding controlled, No redness/swelling at site. Pressure dressing applied. Administered Medications: 03/10 21:58 Drug: NS 0.9% IV 1000 ml Route: IV; Rate: 1 bolus; Site: right antecubital; rv 23:46 Follow up: IV Status: Completed infusion; IV Intake: 1000ml rv 21:58 Drug: Famotidine IVP 20 mg Route: IVP; Site: right antecubital; rv 23:47 Follow up: Response: No adverse reaction; Marked relief of symptoms rv 21:58 Drug: Ondansetron IVP 4 mg Route: IVP; Site: right antecubital; rv 23:47 Follow up: Response: No adverse reaction; Marked relief of symptoms rv 23:46 Drug: Lactated Ringers Solution IV 1000 ml Route: IV; Rate: 150 ml/hr; Site: right rv antecubital; Medication: 21:48 VIS not applicable for this client. rv Intake: 23:46 IV: 1000ml; Total: 1000ml. rv Outcome: 03/11 00:26 Discharge ordered by MD. cp 00:37 Discharged to home ambulatory, with family. rv 00:37 Condition: improved 00:37 Discharge instructions given to patient, family, Instructed on discharge instructions, follow up and referral plans. medication usage, Demonstrated understanding of instructions, follow-up care, medications, Prescriptions given X 1. 00:37 Patient left the ED. rv Signatures: Dispatcher [employer] EDMS Devora Enamorado RN MARIO iw Hero Barnett PA PA cp Bryson, James, RN RN jb4 Mauri Porras RN RN rv Leta Meraz jj6 Corrections: (The following items were deleted from the chart) 03/10 21:17 21:16 Home Meds: Phenergan Oral; [place]
--- NOTE | 2023-03-11 00:26 | EDPHYS ---
Physician Documentation [facility] Name: Lili Harkins Age: 27 yrs Sex: Female : 1995 Arrival Date: 03/10/2023 Time: 20:37 Bed 2 Private MD: ED Physician Hero Young HPI: 03/10 21:15 This 27 yrs old Female presents to ER via Ambulatory with complaints of cp Nausea/Vomiting, Dizziness, General Weakness, EST 8 WKS GESTATION. 21:15 The patient presents to the emergency department with nausea and vomiting, that started cp 4 day(s) ago. 21:15 The estimated gestational age is 8 weeks. cp 21:15 course: care: private OB physician, Leakage of Fluid: none cp appreciated. Previous pregnancies: in previous pregnancies patient has had hyperemesis gravidum. Associated signs and symptoms: Pertinent negatives: chest pain, diarrhea, fever, ruptured membranes, seizure, vaginal bleeding, vaginal discharge. 21:15 Patient reports trying prescribed Zofran and Phenergan at home w/o improvement. 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 - Social history:: Smoking status: Patient denies any tobacco usage or history of. Patient/guardian denies using alcohol, street drugs. ROS: 21:20 Constitutional: Positive for poor PO intake, Negative for body aches, chills, fever. cp 21:20 Eyes: Negative for injury, pain, redness, and discharge. cp 21:20 ENT: Negative for drainage from ear(s), ear pain, sore throat, difficulty swallowing, difficulty handling secretions. 21:20 Cardiovascular: Negative for chest pain, palpitations. 21:20 Respiratory: Negative for cough, shortness of breath, wheezing. 21:20 Abdomen/GI: Positive for nausea and vomiting, anorexia, Negative for diarrhea, constipation. 21:20 Neuro: Positive for dizziness, weakness, Negative for altered mental status, numbness, speech changes. 21:20 All other systems are negative. Exam: 21:30 Constitutional: The patient appears in no acute distress, alert, awake, non-toxic, well cp developed, well nourished. 21:30 Head/Face: Normocephalic, atraumatic. cp 21:30 Eyes: Periorbital structures: appear normal, Conjunctiva: normal, no exudate, no injection, Sclera: no appreciated abnormality, Lids and lashes: appear normal, bilaterally. 21:30 ENT: External ear(s): are unremarkable, Nose: is normal, Mouth: Lips: moist, Oral mucosa: moist, Posterior pharynx: Airway: no evidence of obstruction, patent. 21:30 Chest/axilla: Inspection: normal. 21:30 Cardiovascular: Rate: tachycardic, Rhythm: regular. 21:30 Respiratory: the patient does not display signs of respiratory distress, Respirations: normal, no use of accessory muscles, no retractions, labored breathing, is not present, Breath sounds: are clear throughout, no decreased breath sounds, no stridor, no wheezing. 21:30 Abdomen/GI: Inspection: abdomen appears normal, Bowel sounds: active, all quadrants, Palpation: soft, in all quadrants, mild abdominal tenderness, in all quadrants. 21:30 Skin: no rash present. 21:30 Neuro: Orientation: to person, place \T\ time. Mentation: is normal, Motor: moves all fours, strength is normal, Gait: is steady. Vital Signs: 21:12 BP 107 / 81; Pulse 101; Resp 17 S; Temp 97.8(O); Pulse Ox 100% on R/A; Weight 64.86 kg iw (R); Height 5 ft. 6 in. (R); 22:14 BP 119 / 84; Pulse 73; Resp 16; Pulse Ox 97% on R/A; jb4 03/11 00:36 BP 106 / 76; Pulse 64; Resp 16; Temp 98; Pulse Ox 100% on R/A; rv 03/10 21:12 Body Mass Index 23.08 (64.86 kg, 167.64 cm) iw Yoel Coma Score: 00:37 Eye Response: spontaneous(4). Motor Response: obeys commands(6). Verbal Response: rv oriented(5). Total: 15. MDM: 03/10 21:23 Patient medically screened. [facility] 03/11 00:25 Data reviewed: vital signs, nurses notes, lab test result(s), radiologic studies, cp ultrasound. 00:25 Consideration of Admission/Observation Escalation of care including cp admission/observation considered. I considered the following discharge prescriptions or medication management in the emergency department Medications were administered in the Emergency Department. See MAR. Counseling: I had a detailed discussion with the patient and/or guardian regarding: the historical points, exam findings, and any diagnostic results supporting the discharge/admit diagnosis, lab results, radiology results. Response to treatment: the patient's symptoms have markedly improved after treatment, nausea improved, vomiting resolved and patient tolerating po fluids. discussed results of labs showing dehydration. will discharge to home to continue oral hydration. 03/10 21:07 Order name: Abo/rh Typing; Complete Time: 22:44 03/11 00:07 Interpretation: Reviewed. 03/10 21:07 Order name: Basic Metabolic Panel; Complete Time: 22:44 03/10 22:44 Interpretation: Normal except: NA 131; CO2 18; GLUC 73. 03/10 21:07 Order name: CBC with Diff; Complete Time: 22:44 03/11 00:07 Interpretation: Normal except: RBC 5.06. 03/10 21:07 Order name: Test, Urine; Complete Time: 22:44 03/10 21:07 Order name: Quantitative Hcg; Complete Time: 22:44 03/10 21:07 Order name: Urinalysis w/ reflexes; Complete Time: 22:44 01 23:16 Order name: US OB Limited 03/10 21:07 Order name: IV Saline Lock; Complete Time: 21:35 03/10 21:07 Order name: Labs collected and sent; Complete Time: 21:35 03/10 21:07 Order name: NPO; Complete Time: 21:35 cp 03/10 23:16 Order name: PO challenge; Complete Time: 23:46 cp Administered Medications: 03/10 21:58 Drug: NS 0.9% IV 1000 ml Route: IV; Rate: 1 bolus; Site: right antecubital; rv 23:46 Follow up: IV Status: Completed infusion; IV Intake: 1000ml rv 21:58 Drug: Famotidine IVP 20 mg Route: IVP; Site: right antecubital; rv 23:47 Follow up: Response: No adverse reaction; Marked relief of symptoms rv 21:58 Drug: Ondansetron IVP 4 mg Route: IVP; Site: right antecubital; rv 23:47 Follow up: Response: No adverse reaction; Marked relief of symptoms rv 23:46 Drug: Lactated Ringers Solution IV 1000 ml Route: IV; Rate: 150 ml/hr; Site: right rv antecubital; Disposition Summary: 03/11/23 00:26 Discharge Ordered Location: Home cp Problem: new cp Symptoms: have improved cp Condition: Stable cp Diagnosis - Hyperemesis gravidarum with metabolic disturbance cp - Other specified related conditions, first trimester cp Followup: cp - With: Private Physician - When: 1 - 2 days - Reason: Recheck today's complaints Discharge Instructions: - Discharge Summary Sheet cp - Hyperemesis Gravidarum cp - Care cp - First Trimester of cp Forms: - Medication Reconciliation Form cp - Thank You Letter cp - Antibiotic Education cp - Prescription Opioid Use cp Prescriptions: - Reglan 10 mg Oral Tablet - take 1 tablet by ORAL route every 6 hours take 30 minutes before meals and at cp bedtime; 20 tablet; Refills: 0, Product Selection Permitted Signatures: Dispatcher [employer] Hero Hearn MD MD cha Williams, Irene, RN RN Hero Barnett PA PA cp Mauri Porras RN RN rv Corrections: (The following items were deleted from the chart) 21:17 21:16 Home Meds: Phenergan Oral; [facility] 03/11 00:16 06 21:15 The patient presents to the emergency department with nausea and vomiting, cp that started 5 day(s) ago, cp
[2023-03-11 01:33] VITALS: BP 106/76; TEMP 98; O2SAT 100
--- NOTE | 2023-03-11 11:41 | RAD REPORT ---
EXAM DESCRIPTION: US - OB Limited - 03/11/2023 12:05 am CLINICAL HISTORY: The patient is 27 years old and is Female; NAUSEA/VOMITING TECHNIQUE: Real-time transvaginal obstetrical ultrasound of the maternal pelvis and a first trimeste r with image documentation. Transvaginal imaging was used for better evaluation of the fe tus and adnexa. COMPARISON: No relevant prior studies available. FINDINGS: GESTATION: A single intrauterine gestational sac and yolk sac are present. A pole with a crown-rump length of 1.8 cm correlating to 8 weeks 0 days is noted. heart rate is 161 bp m. Small hypoechoic area adjacent to the gestational sac is present. JARAD: JARAD October 20, 2023. PLACENTA/AMNIOTIC FLUID: Cannot be adequately evaluated due to the early gestational age. UTERUS/CERVIX: The cervix is closed. No myometrial mass. OVARIES: A left ovarian cyst is present. The ovaries are unremarkable. Normal arterial and venous color Doppler and spectral waveform is present. No mass. FREE FLUID: No free fluid. IMPRESSION: 1. Single IUP at 8 weeks 0 days by CRL heart rate 161 bpm. 2. Small subchorionic hemorrhage. Recommend attention on follow-up. Electronically signed by: Rosina Mcmahon MD 03/11/2023 12:45 AM CDT Due to temporary technical issues with the PACS/Fluency reporting system, reports are being signed by the in house radiologist without review as a courtesy to ensure prompt reporting. The interpreting r adiologist is fully responsible for the content of the report.
== END 2023-03-11 00:37 | disposition home or self-care (01) ==
LOC: ER 20:37
DX: O21.1 Hyperemesis gravidarum with metabolic disturbance (principal); Z3A.08 8 weeks gestation of pregnancy; Z88.5 Allergy status to narcotic agent
CPT/HCPCS: 96361; 85025; 81001; 80048; 36415; 86900; 81025; 86901; 84702; 76815; 96375; 96374; 99284; J2405; J7120; J7030

== ENCOUNTER 2023-03-19 19:15 | Emergency (ER) | payer BC ==
--- OUTSIDE RECORDS SUMMARY | 2023-03-19 19:28 | XMS REPORT | Continuity of Care Document ---
:1995 Author Organization [facility] t Address [address] [place] [address] [address] [place] [address] Care Team Providers Name Role Phone Shireen Corley Primary Care Physician TRACY_Jessica_Liliana Attending Clinician Unavailable TRACY_Akshat Attending Clinician Unavailable Alexey Yarbrough Attending Clinician Unavailable Alexey Yarbrough Attending Clinician [phone] Hugo Martin Attending Clinician Unavailable Nicholas Gonzalez Attending Clinician Unavailable Sammi Maloney RN Attending Clinician Unavailable UNKNOWN, ATTENDING Attending Clinician Unavailable Connie Flannery MD Attending Clinician Unknown, Attending Attending Clinician Unavailable Lab, Adc Fam Pob I Attending Clinician Unavailable Doctor Unassigned, [place] Attending Clinician Unavailable Shireen Corley Attending Clinician SHIREEN MITCHELL Attending Clinician Unavailable Mor_Liliana Admitting Clinician Unavailable TRACY_Akshat Admitting Clinician Unavailable Alexey Yarbrough Admitting Clinician Unavailable Payers Payer Name Policy Type Policy Number Effective Date Expiration Date S gianluc[place] [id number] 2018 00:00:00 [place] ([place] Problems Condition Condition [...] different from the original. 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 Liver Liver Disease Active Univers mass, [...] 02-20 [facility] [place] morphine DA Active [place] [facility] 14 [facility] [place] MORPHINE DRUG Active Hives Univers INGREDI 11-06 ity of 00:00: [place] 00 Medical Branch Morphine Propensi Active Swelling Univ ers ty to 11-06 ity of adverse 00:00: [place] reaction 00 Medical s to Branch drug Social History Social Habit Start Date Stop Date Quantity Comments Source ASSERTION 2021-01-14 University of 00:00:00 [facility] Exposure to Not sure [facility] SARS-CoV-2 [facility] [place] [facility] (event) Branch Tobacco use and 2021-06-14 2021-06-14 Never used Universit y of exposure 00:00:00 00:00:00 [facility] Alcohol intake 2021-06-14 2021-06-14 Current drinker Unive rsity of 00:00:00 00:00:00 of alcohol [facility] [place] [facility] (finding) [place] Alcohol Comment 2018-10-19 2018-10-19 occasional Universit y of 00:00:00 00:00:00 [facility] Sex Ass[birth year] At [birth year] Universit y of 00:00:00 00:00:00 [facility] Smoking Status Start Date Stop Date Source Never smoker [facility] Branch Medications Ordered Filled Start Stop [...] Immunizations Ordered Filled Immunization Date Status Comments [facility] e Immunization Name Name Influenza Virus 2020-07-11 Completed Universit y of Vaccine Quad .5 mL 00:00:00 [facility] 6+ MO Branch Influenza Virus 2020-07-11 Completed Universit y of Vaccine Quad .5 mL 00:00:00 [facility] 6+ MO Branch TDAP 2018-08-16 Completed [facility] 00:00:00 [facility] TDAP 2018-08-16 [facility] 00:00:00 [facility] Vital Signs Vital Name Observation Time Observation [...] 17:30:00 113 mm[Hg] Univer sity of pressure [facility] Diastolic blood 2021-06-14 17:30:00 76 mm[Hg] Unive rsity of [facility] Heart rate 2021-06-14 17:30:00 77 /min [facility] Body temperature 2021-06-14 17:30:00 36.67 Bri [facility] Respiratory rate 2021-06-14 17:30:00 16 /min [facility] Body height 2021-06-14 17:30:00 167.6 cm [facility] Body weight 2021-06-14 17:30:00 58.514 kg [facility] BMI 2021-06-14 17:30:00 20.82 kg/m2 [facility] Oxygen saturation in 2021-06-14 17:30:00 100 /min [facility] Arterial blood by [facility] Pulse oximetry Branch BP Diastolic 2021-02-12 00:00:00 70 mm[Hg] Irina Anglin edical Height 2021-02-12 00:00:00 66 [in_i] Irina Anglin edical BMI (Body Mass 2021-02-12 00:00:00 21.3 kg/m2 [facility]) BP Systolic 2021-02-12 00:00:00 112 mm[Hg] Irina Anglin ed[facility] Body Weight 2021-02-12 00:00:00 132 [lb_av] Irina Anglin edical Procedures Procedure Date / Time Performed Performing Clinician Jordy perrin [id number] 2021-10-02 00:00:00 LEESH.01 [facility] [id number] 2021-10-02 00:00:00 LEESH.01 [facility] [id number] 2021-10-01 00:00:00 LEESH.01 [facility] ULTRASOUND OF FETUS 2021-09-28 00:00:00 [facility] Anglin [...] Date/Time Type Type Clinicians Facility Department ID 2023-03-15 2023-03-15 Outpatient [facility]_ PRIV PRIV [id number] [facility] 00:00:00 00:00:00 Yoan [id number] Medic al 2023-03-14 2023-03-14 Outpatient GC_[facility]_ PRIV PRIV 180 [id number] [facility] 00:00:00 00:00:00 Yoan [id number] Medic al 2023-03-10 2023-03-10 Outpatient GC_[facility]_ PRIV PRIV 180 [id number] [facility] 00:00:00 00:00:00 Yoan [id number] Medic al 2023-03-012023-03-01 Outpatient GC_[facility]_ PRIV PRIV 180 [id number] [facility] 00:00:00 00:00:00 Yoan [id number] Medic al 2023-02-28 2023-02-28 Outpatient GC_[facility]_ PRIV PRIV 180 [id number] [facility] 00:00:00 00:00:00 Yoan [id number] Medic al 2023-02-15 2023-02-15 Outpatient GC_[facility]_ PRIV PRIV 180 [id number] [facility] 00:00:00 00:00:00 Yoan [id number] Medic al 2022-01-07 2022-01-07 Outpatient GC_[facility]_ PRIV PRIV 180 [id number] [facility] 03:40:00 03:40:00 Yoan [id number] Medic al 2021-12-19 2021-12-19 Outpatient GC_[facility]WHAT[facility] PRIV PRIV 180 [id number] [facility] 01:40:00 01:40:[address] _[id number] [facility] 2021-12-10 2021-12-10 Outpatient GC_[facility]_ PRIV PRIV 180 [id number] [facility] 04:15:00 04:15:00 Yoan [id number] Medic al 2021-11-21 2021-11-21 Outpatient GC_[facility]WHAT[facility] PRIV PRIV 180 [id number] [facility] 07:36:00 07:36:[address] _[id number] [facility] 2021-11-12 2021-11-12 Outpatient GC_[facility]_ PRIV PRIV 180 [id number] [facility] 03:36:00 03:36:00 Yoan [id number] Medic al 2021-10-24 2021-10-24 Outpatient GC_[facility]WHAT[facility] PRIV PRIV 180 [id number] [facility] 03:31:00 03:31:[address] _[id number] [facility] 2021-10-15 2021-10-15 Outpatient GC_[facility]_ PRIV PRIV 180 [id number] [facility] 01:52:00 01:52:00 Yoan [id number] Medic al 2021-10-01 2021-10-03 Inpatient EL JERRELL Yarbrough OB [id number] [facility] 13:49:00 22:23:00 [facility] 2021-09-29 2021-09-29 Outpatient GC_[facility]_ PRIV PRIV 180 [id number] [facility] 04:19:00 04:19:00 Yoan [id number] Medic al 2021-09-28 2021-09-28 Outpatient GC_[facility]_ PRIV PRIV 180 [id number] [facility] 10:47:00 10:47:00 Yoan [id number] Medic al 2021-09-28 2021-09-28 Alexey [facility] [id number] [facility] 00:00:00 00:00:00 [facility] - Medic al JOHANNE Yarbrough MD: [address], [address], [place] [address] , Ph. 2021-09-28 2021-09-28 Outpatient Zenon, PRIV PRIV [id number] 00:00:00 00:00:00 Alexey [id number] Krishna [id number] 2021-09-26 2021-09-26 Outpatient GC_[facility]WHAT[facility] PRIV PRIV 180 [id number] [facility] 03:57:00 03:57:[address] _[id number] [facility] 2021-09-25 2021-09-25 Outpatient GC_[facility]_ PRIV PRIV 180 [id number] [facility] 03:26:00 03:26:00 Yoan [id number] Medic al 2021-09-25 2021-09-25 Alexey [facility] [id number] [facility] 00:00:00 00:00:00 [facility] - Medic al JOHANNE Yarbrough MD: [address], [address], [place] [address] , Ph. 2021-09-25 2021-09-25 Outpatient Zenon, PRIV PRIV [id number] 00:00:00 00:00:00 Alexey [id number] Krishna [id number] 2021-09-24 2021-09-24 Outpatient GC_SWHATB[facility] PRIV PRIV 180 [id number] [facility] 10:35:00 10:35:00 _Yoan [id number] [facility] sofya 2021-09-22 2021-09-22 Outpatient GC_[facility]_ PRIV PRIV 180 [id number] [facility] 03:34:00 03:34:00 Yoan [id number] Medic al 2021-09-21 2021-09-21 Outpatient GC_[facility]_ PRIV PRIV 180 [id number] [facility] 03:15:00 03:15:00 Yoan [id number] Medic al 2021-09-21 2021-09-21 Alexey [facility] [id number] [facility] JOH[facility]NE Yarbrough MD: [address], [address] [address] , Ph. 2021-09-21 2021-09-21 Outpatient Zenon, PRIV PRIV [id number] 00:00:00 00:00:00 Alexey [id number] Krishna [id number] 2021-09-19 2021-09-19 Outpatient GC_[facility]_ PRIV PRIV 180 [id number] [facility] 01:46:00 01:46:00 Yoan [id number] Medic al 2021-09-18 2021-09-18 Outpatient GC_[facility]_ PRIV PRIV 180 [id number] [facility] 02:33:00 02:33:00 Yoan [id number] Medic al 2021-09-18 2021-09-18 Outpatient Zenon, PRIV PRIV [id number] 00:00:00 00:00:00 Alexey [id number] Krishna [id number] 2021-09-18 2021-09-18 Alexey [facility] [id number] [facility] 00:00:00 00:00:00 [facility] - Medic al JOHANNE Yarbrough MD: [address], [address], [place] [address] , Ph. 2021-09-17 2021-09-17 Outpatient GC_[facility]_ PRIV PRIV 180 [id number] [facility] 10:12:00 10:12:00 Yoan [id number] Medic al 2021-09-10 2021-09-10 Emergency EM Veronica, [facility] [id number] [facility] 19:43:00 21:52:00 Hugo 73 [facility] [place] 2021-09-09 2021-09-09 Emergency EM Carlos, [facility] [id number] [facility] 02:01:00 04:30:00 Nicholas 77 [facility] [place] 2021-08-31 2021-08-31 Alexey [facility] [id number] [facility] 00:00:00 00:00:00 [facility] - Medic MARTIN More_ : [address], [address], [place] [address] , Ph. 2021-08-20 2021-08-20 Alexey [facility] [id number] [facility] 00:00:00 00:00:00 [facility] - Medic JOHANNE More MD: [address], [address], [place] [address] , Ph. 2021-06-15 2021-06-15 Telephone CARA Maloney [id number] Univers 00:00:00 00:00:00 Sammi VALENTINE 350.1.13.10 i [facility] 4.2.7.2.686 Rei as [phone] [address] 2021-06-14 2021-06-14 Outpatient R UNKNOWN, [facility] [id number] Univers 13:00:00 13:00:00 ATTENDING ity of [facility] 2021-06-14 2021-06-14 Urgent Connie Flannery [id number] Univers 12:25:38 12:40:38 Care Unknown, Attending Pediatric 350.1.13. 10 ity of s and 4[place]2.7.2.686 [place] [id number] [place] [address] [facility] 2021-02-22 2021-02-22 Outpatient GC_[facility]_ PRIV PRIV [id number] [facility] 12:46:00 12:46:00 Yoan [id number] Medic al 2021-02-20 2021-02-20 Inpatient [facility] [id number] [facility] 11:02:19 11:02:19 20 [facility] 2021-02-18 2021-02-18 Outpatient GC_[facility]AOM[facility]_ PRIV PRIV 180 [id number] [facility] 01:04:00 01:04:00 Yoan [id number] Medic al 2021-02-12 2021-02-12 Outpatient GC_[facility]_ PRIV PRIV 180 [id number] [facility] 11:39:00 11:39:00 Yoan [id number] Medic al 2021-02-12 2021-02-12 Outpatient Zenon PRIV PRIV [id number] 00:00:00 00:00:00 Alexey [id number] [place] [id number] 2021-02-12 2021-02-12 Alexey [facility] 06 [facility] 00:00:00 00:00:00 [facility] Medic dc TRACY Yarbrough_DANIELLEC_ MD: [address], [address], [place] [address] , Ph. 2021-02-03 2021-02-03 Outpatient GC_[facility]_ PRIV PRIV [id number] [facility] 01:03:00 01:03:00 Yoan [id number] Medic al 2020-10-11 2020-10-11 Laboratory Lab, Adc [facility] [id number] 08:53:29 09:13:29 Only Fam Pob I Health 350.1.13.10 [place] 4.2.7.2.686 Professio [id number] nal [address] 2020-10-11 2020-10-11 Outpatient R [facility] [id number] Univers 09:00:00 09:00:00 [facility] 2020-10-10 2020-10-10 Outpatient R [facility] [id number] Univers 13:40:00 13:40:00 [facility] 2020-10-09 2020-10-09 Letter Doctor CARA [id number] 00:00:00 00:00:00 (Out) Unassigned, SERGE 350.1.13.10 [place] [facility] 4.2.7.2.686 [id number] 2020-08-11 2020-08-11 Outpatient R [facility] [id number] Univers 11:00:00 11:00:00 [facility] 2020-08-08 2020-08-08 [facility] [id number] 13:38:36 14:51:51 Visit Shireen [facility] 350.1.13.10 [place] 4.2.7.2.686 [place] [id number] nal 0[address] 2020-08-08 2020-08-08 Outpatient [facility] [id number] Univers 14:40:00 14:40:00 SHIREEN [facility] 2020-07-18 2020-07-18 [facility] [id number] Univers 11:00:00 11:00:00 SHIREEN [facility] Results Test Description Test Time Test Comments Results Result Comments Source SURGICAL 2021-10-19 14:00:00 Test Item Value Reference Range Interpretation Comme nts SURGICAL RUN (test DATE: 10/19/21 [facility] PAGE 1 RUN TIME: 1400 Specimen Inquiry RUN USER: INTERFACE code = PATIEN SR) T: LAURA HALL [id number] LOC: RONAK U #: [id number] AGE/SX: 26/ ROOM: [facility] RE10/01/21REG DR: Alexey Yarbrough MD : 89 BED: A DIS: 10/03/21 STATUS: DIS IN TLOC: SPEC #: [id number] RECD: 09/10 STATUS: [facility] #: [id number] YOVANI: 10/02/21- [facility] DR: Alexey Yarbrough MD ENTERED: 10/05/21 SP TYPE: SURGICAL OTHR DR: Deepak Canchola MD, Anthony S MDORDERED: ANATOMIC SPEC, SPEC TRACK, [id number] COPIES TO: Alexey Yarbrough MD [address] [place], [place] [address] Deepak Canchola MD [address] [place], [place] [address] Sammie Ny MD [address] [place] [address] PROCEDURES: 16787 (10/05/21943) TISSUES: A. PLACENTA, THIRD TRIMESTER (28 + WEEKS) FINAL DIAGNOSIS PLACENTA, 39.2 WEE KS, DELIVERY:- Third-trimester placenta, 302 g.- Meconium stain.- [...] 1 cm inaggregates. No lesion is identified. Application Designer sections are submitted as follow: A1. Cord and membrane CONTINUED ON NEXT PAGE RUN DATE: 10/19/21 [facility] PAGE 2 RUN TIME: 1400 Specimen Inquiry RUN USER: INTERFACE SPEC #: [id number] PATIENT: LAURA HALL #[id number] (Continued) ----- GROSS DESCRIPTION (Con tinued) A2-3. Placenta parenchyma Technical component [facility] at [facility], [place] [address] MICROSCOPIC DESCRIPTION The diagnosis is based upon microscopic examination. CLINICAL INFORMATION G 2 P 1, 39.2 WEEKS Signed SharynAnne Marie 0 10/19/21 1400 END OF REPORT HGB [id number] 05:59:00 Test Item Value Reference Range Interpretation Comments HEMOGLOBIN (test code = HGB) 11.6 g/dL 10.1-13.8 N HEMATOCRIT (test code = HCT) 35.0 % 32.5-41.8 N AG HEPATITIS B [id number] 16:19:00 Test Item Value Reference Range Interpretation Comments AG HEPATITIS B SURFACE (test code NONREACTIVE NONREACTIVE = HBSAG) AB HEPATITIS C [id number] 16:19:00 Test Item Value Reference Range Interpretation Comments AB HEPATITIS C (test code = NONREACTIVE NONREACTIVE HCVAB) SIGNAL TO CUTOFF (test code = <0.02 <0.80 N CUTOFF) AB [id number] 16:19:00 Test Item Value Reference Range Interpretation Comments AB TREPONEMA (test code = TREPAB) NONREACTIVE NONREACTIVE AB HIV 1 16:19:00 Test Item Value Reference Range Interpretation Comments AB HIV 1 2 (test NONREACTIVE NONREACTIVE Done by [employer] code = [id number]) 4th Gen HIV Ag/Ab Combo Screen COVID 19 Asymptomatic IH [id number] 15:26:00 Test Item Value Reference Range Interpretation [...] or approved; th e test hasbeen authori kieran by FDA under an Emerge ncy Use [...] of Accreditation. This test is only authori zesharda for the duration of thedeclaration that circumstances e xist justifying theauthorizatio n of emergency use o f in vitro diagnostic test sfor detection and/o r diagnosis of CO VID-19 under Qbcstvt37 4(b)(1) of the Act, 21 U.S .C. 360bbb-3(b)(1), unless theauthorizatio n is terminated or r evoked sooner. CBC W/AUTO [id number] 14:50:00 Test Item Value Reference Range Interpretation [...] in Unspecified specimen by SEBASTIEN with probe [id number] 00:00:00 Test Item Value Reference Range Interpretation Comments strep grp.B, DNA (test code = strep negative negative grp.B, DNA) [facility] Medical[facility]reptococcus agalactiae DNA [Presence] in Unspecified specimen by SEBASTIEN with probe [id number] 00:00:00 Test Item Value Reference Range Interpretation Comments strep grp.B, DNA (test code = strep negative negative grp.B, DNA) [facility] [id number] 01:40:00 Test Item Value Reference Range Interpretation Comments B-TYPE NATRIURETIC PEPTIDE (test 28.48 pg/mL 0-100 N code = BNP) BASIC METABOLIC [id number] 21:09:00 Test Item Value Reference Range Interpretation [...] = CA) 8.9 mg/dL 8.4-10.2 N LIVER [id number] 21:09:00 Test Item Value Reference Range Interpretation [...] 103 units/L 46-116 N code = ALKP) [id number] 21:09:00 Test Item Value Reference Range Interpretation Comments TROPONIN-I (test code = TROPI) <0.017 ng/mL <0.056 N CBC W/AUTO [id number] 20:58:00 Test Item Value Reference Range Interpretation [...] code = PLTMR) - XR CHEST 1 [id number] 00:00:00 [facility] : 1995 Sex: F PatientName: LAURA HALL Unit No: [id number] EXAMS: CPT CODE: [id number] XR CHEST 1 V 37450 PROCEDURE INFORMATION: Exam: XR Chest Exam date [...] Orig Print D/T: S: 09/10/2021 (2026) [facility] NAME: LARUA HALL Radiology Department PHYS: Hugo Howard DO [address] : 1995 AGE: 26 SEX: [place] [address] LOC: FColletteERS PHONE #: [phone] EXAM DATE: 09/10/2021 STATUS: REG ER FAX #: [phone] RAD NO: Page 1 Signed Report Coronavirus 2018 nCo [id number] 03:24:00 Test Item Value Reference Range Interpretation Comments Coronavirus 2018 Positive Negative A RESULTS CA LLED TO [facility] Bedside (test MAHAREAD BACK & code = [id number]) CONFIRM ED? YESBY [id number] 09/09 0323 Positive result s are indicative of t he presence ofSARS -CoV-2 RNA; clinical c orrelation with patient hi storyand other diagnosti c information is necessary to determinepat ient infection statu s. Positive result s do not rule outbacteri al infection or co -infection with other viru ses.TEST PERFORMED UNDER AN EMERGENCY USE AUTHORIZATION F ROM FDA B-TYPE NATRIURETIC [id number] 03:17:00 Test Item Value Reference Range Interpretation Comments B-TYPE NATRIURETIC PEPTIDE (test 4.44 pg/mL 0-100 N code = BNP) COMPREHENSIVE METABOLIC [id number] 03:13:00 Test Item Value Reference Range Interpretation [...] 97 units/L 46-116 N code = ALKP) [id number] 03:13:00 Test Item Value Reference Range Interpretation Comments LIPASE (test code = LIP) 127 units/L 73-393 N [id number] 03:13:00 Test Item Value Reference Range Interpretation Comments TROPONIN-I (test code = TROPI) <0.017 ng/mL <0.056 N LACTIC [id number] 03:13:00 Test Item Value Reference Range Interpretation Comments LACTIC ACID (test code = LACT) <0.3 MMOL/L 0.5-2.2 L UA RFLX MICR CULT IF [id number] 02:59:00 Test Item Value Reference Range Interpretation [...] for culture: Flank PainSpecimen Description: CLEAN CATCHPROTHROMBIN [id number] 02:59:00 Test Item Value Reference Range Interpretation Comments PROTHROMBIN TIME PATIENT (test code 11.5 secs 10.1-12.3 N = PTP) IS PATIENT ON ANTICOAGULANTS ? NINTERNATIONAL NORMAL [id number] 02:59:00 Test Item Value Reference Range Interpretation [...] IS PATIENT ON ANTICOAGULANTS ? NTHROMBOPLASTIN TIME [id number] 02:59:00 Test Item Value Reference Range Interpretation Comments THROMBOPLASTIN TIME PARTIAL (test 33.2 secs 22-38 N code = PTT) IS PATIENT ON ANTICOAGULANTS ? NCBC W/AUTO [id number] 02:44:00 Test Item Value Reference Range Interpretation [...] code = PLTMR) - XR CHEST 1 [id number] 00:00:00 [facility] : 1995 Sex: F PatientName: LAURA HALL Unit No: [id number] EXAMS: CPT CODE: [id number] XR CHEST 1 V 97163 PROCEDURE INFORMATION: Exam: XR Chest Exam date [...] MD CC: Technologist: RT Alida Trnscrbd D/ (317) [email or web address] Orig Print D/T: S: 09/09/2021 (317) [facility] NAME: LAURA HALL Radiology Department PHYS: Nicholas March [address] : 1995 AGE: 26 SEX: F [place], [place] [address] LOC: FColletteERS PHONE #: [phone] EXAM DATE: 09/09/2021 STATUS: REG ER FAX #: [phone] RAD NO: Page 1 Signed ReportUA RFLX [...] culture: Suprapubic PainSpecimen Description: CLEAN CATCHCBC W/AUTO [id number] 12:19:00 Test Item Value Reference Range Interpretation [...] NORMAL NORMAL code = PLTMR) COMPREHENSIVE METABOLIC [id number] 11:44:00 Test Item Value Reference Range Interpretation [...] 72 units/L 46-116 N code = ALKP) [id number] 11:44:00 Test Item Value Reference Range Interpretation Comments LIPASE (test code = LIP) 176 units/L 73-393 N Notes Date/Time Note Provider Source 2021-10-03 10:46:00-00:00 [facility] OB Postpart Progr Note REPORT#:[id number] REPORT STATUS: Signed DATE:10/03/21 TIME: 1045 PATIENT: LAURA HALL UNIT #: [id number] ROOM/BED: [address] : [birth year] AGE: 26 SEX: F ATTEND: Db Yarbrough MD ADM AUTHOR: Eloy Shen MD * ALL edits or amendments must be made on the Razmir/ForeSee document * Subjective Subjective Admission EGA: Weeks: 39 Days: 1 Status/Day: post (PPD1) Patient reports: Comments: No complaints. Pain and bleeding stable. Objective General VS: Vital Signs: Date Time Temp Pulse Resp B/P B/P Pulse O2 O2 F low FiO2 Mean Ox Delivery Rate 10/03 0836 97.8 54 17 116/73 10/02 2230 86.0 10/02 2230 98.1 58 16 117/67 10/02 2130 85.0 10/02 2130 79 114/69 10/02 2115 85.0 10/02 2115 76 114/67 10/02 2100 77.0 10/02 2100 65 106/56 10/02 2045 86.0 10/02 2045 70 112/70 10/02 2030 88.0 10/02 2030 71 112/77 10/02 2015 91.0 10/02 2015 92 115/78 10/02 2000 92.0 10/02 2000 80 120/77 10/02 1945 94.0 10/02 1945 86 119/77 12/24 1930 83.0 12 1930 76 112/70 10/02 1915 87.0 1224 1915 75 110/74 1224 1900 91.0 1224 1900 62 117/74 1224 1845 93.0 1224 1845 73 120/79 1224 1831 88.0 12 1831 59 109/76 10/02 1815 79.0 10/02 1815 57 114/55 10/02 1801 84.0 10/02 1801 64 119/60 10/02 1746 98.2 18 10/02 1746 89.0 10/02 1746 166 152/74 10/02 1730 80.0 10/02 1730 77 105/65 10/02 1725 72 100 10/02 1720 62 100 10/02 1717 75.0 10/02 1717 98.5 83 18 101/60 10/02 1715 75 98 10/02 1714 79 93 10/02 1710 71 100 10/02 1705 60 100 10/02 1701 84.0 10/02 1701 75 109/68 10/02 1700 72 100 10/02 1655 74 100 10/02 1650 60 100 10/02 1646 81.0 10/02 1646 61 109/63 10/02 1645 60 100 10/02 1640 68 93 10/02 1635 68 99 10/02 1632 78.0 10/02 1632 98.4 65 18 105/61 10/02 1630 59 100 10/02 1625 59 100 10/02 1620 62 100 10/02 1616 73.0 10/02 1616 64 101/56 10/02 1615 62 100 10/02 1610 60 100 24 1605 64 100 10/02 1600 70.0 10/02 1600 63 96/54 100 1224 1555 65 100 1224 1550 64 100 24 1547 75.0 24 1547 72 104/57 1224 1545 72 100 1224 1540 65 100 1224 1535 67 100 1224 1530 69.0 1224 1530 98.2 65 18 95/54 100 1224 1525 61 100 1224 1520 62 100 1224 1516 72.0 1224 1516 61 95/54 12/24 1515 57 100 12/24 1510 62 100 10/02 1505 64 100 10/02 1502 77.0 10/02 1502 56 102/59 10/02 1500 59 100 10/02 1455 60 100 10/02 1450 63 99 10/02 1446 90.0 10/02 1446 59 119/72 10/02 1445 64 100 10/02 1440 56 100 10/02 1435 69 100 10/02 1432 92.0 10/02 1432 63 119/77 10/02 1430 64 99 [...] toda y, discharge today at 1047 RPT #:[id number] END OF REPORT 2021-10-02 17:36:00-00:00 [facility] ([facility]) OB Delivery Note REPORT#:[id number] REPORT STATUS: Signed DATE:10/02/21 TIME: 1735 PATIENT: LAURA HALL UNIT #: [id number] ROOM/BED: : 93 AGE: 26 SEX: F ATTEND: Db Yarbrough MD ADM AUTHOR: Lizzy Monzon MD * ALL edits or amendments must be made on the Razmir/ForeSee document * OB Delivery Pre-delivery GBS status: [...] hypovol=no he m, 48 at 1737 RPT #:[id number] END OF REPORT 2021-10-02 09:18:00-00:00 [facility] [facility]) OB Intrapart Prog Note REPORT#:[id number] REPORT STATUS: Signed DATE:10/02/21 TIME: 917 PATIENT: LAURA HALL UNIT #: [id number] ROOM/BED: -A : 93 AGE: 26 SEX: F ATTEND: Db Yarbrough MD ADM AUTHOR: Lizzy Monzon MD * ALL edits or amendments must be made on the el ectronic/computer document * Subjective Subjective Patient reports: Patient [...] % (Auto) (14.5 - 29.7 %) 18.3 [place] % (Auto) (3.6 - 10.2 %) 6.9 Eos % (Auto) (0.0 - 3.0 %) 0.4 Baso % (Auto) (0.1 - 0.9 %) 0.1 Neut # (Auto) (K/mm3) 5.2 Lymph # (Auto) (K/mm3) 1.3 [place] # (Auto) (K/mm3) 0.5 Eos # (Auto) [...] labor/dila tion epidural if desires at 0921 [facility] #:[id number] END OF REPORT 2021-10-01 21:20:00-00:00 [facility] ([facility]) OB Admission / H P REPORT#:[id number] REPORT STATUS: Signed DATE:10/01/21 TIME: 2119 PATIENT: LAURA HALL UNIT #: [id number] ROOM/BED: [address] : 93 AGE: 26 SEX: F ATTEND: Db Yarbrough MD ADM AUTHOR: Ellen Estevez MD * ALL edits or amendments must be made on the Razmir/computer document * OB History Chief complaint: scheduled [...] 1350 B/P 115/75 10/01 1350 Pulse 93 10/01 1350 Vital Signs Date Temp Pulse Resp [...] MD on 09/10 12/28 at 2126 RPT #:[id number] END OF REPORT 2021-09-10 21:31:00-00:00 [facility] ([facility]) EMERGENCY PROVIDER REPORT REPORT#:[id number] REPORT STATUS: Signed DATE:09/10/21 TIME: 2130 PATIENT: LAURA HALL UNIT #: [id number] ROOM/BED: AGE: 26 SEX: F PCP PHYS: Alexey Yarbrough MD SERVICE AUTHOR: Hugo Martin DO * ALL edits or amendments must be made on the Razmir/computer document * HPI-General Illness Free Text HPI [...] (ZOFRAN ODT) 4 MG PO Q12H PRN [place] N N/V PNV WITH FE FUMARATE/FA () [...] (Auto) (14.5 - 29.7 %) 13.4 L [place] % (Auto) (3.6 - 10.2 %) 6.0 Eos % (Auto) (0.0 - 3.0 %) 0.1 Baso % (Auto) (0.1 - 0.9 %) 0.0 L Neut # (Auto) (K/mm3) 6.0 Lymph # (Auto) (K/mm3) 1.0 [place] # (Auto) (K/mm3) 0.5 Eos # (Auto) (K/mm3) 0.01 Baso # (Auto) (K/mm3) 0.0 Recent Impressions: RADIOLOGY - XR CHEST 1 V 09/10 2005 Report Impression - Status: SIGNED Entered: 09/10/20212026 IMPRESSION: No acute cardiopulmonary findings. Impression By: [email or web address] - Gayatri Eugene MD Lab Imaging Statement [...] Ox 100 09/10 1946 B/P 112/76 09/10 194 B/P Mean 88 09/10 1946 O2 Delivery [...] physician or other designated or consulting phys ician as outlined in the discharge instructions. The [...] symptoms should prompt an immediate return to [facility] or the closest emergency department or a call to 911. Electronically Signed by Hugo Martin DO on 04/29 at 0119 RPT #:[id number] END OF REPORT 2021-09-09 03:41:00-00:00 [facility] ([facility]) EMERGENCY PROVIDER REPORT REPORT#:[id number] REPORT STATUS: Signed DATE:09/09/21 TIME: 034 PATIENT: LAURA HALL UNIT #: [id number] ROOM/BED: AGE: 26 SEX: F PCP PHYS: Alexey Yarbrough MD SERVICE AUTHOR: Nicholas Gonzalez MD * ALL edits or amendments must be made on the el Toptal/computer document * HPI-General Illness General Confirmed Patient [...] (ZOFRAN ODT) 4 MG PO Q12H PRN [place] N N/V PNV WITH FE FUMARATE/FA () [...] 97 09/09 401 Resp 22 09/09 401 Review of Vital Signs Reviewed Physical Exam [...] [Embedded Image Not Available] Laboratory Tests: 09/09 022 Chemistry Sodium (135 - 145 mEq/L) 134 [...] - 12.3 secs) 11.5 INR 1.04 PTT ([place]) (22 - 38 secs) 33.2 Hematology WBC [...] (Auto) (14.5 - 29.7 %) 8.5 L [place] % (Auto) (3.6 - 10.2 %) 6.2 Eos % (Auto) (0.0 - 3.0 %) 0.0 Baso % (Auto) (0.1 - 0.9 %) 0.1 Neut # (Auto) (K/mm3) 7.2 Lymph # (Auto) (K/mm3) 0.7 [place] # (Auto) (K/mm3) 0.5 Eos # (Auto) (K/mm3) 0 Baso # (Auto) (K/mm3) 0.0 Serology SARS CoV-2 RNA Rapid SEBASTIEN (Negative) Positive *A Urines Urine Color (YELLOW) YELLOW Urine Appearance (CLEAR) Slightly-Cloudy Urine pH (5 - 9) 5.0 Ur Specific [place] (1.001 - 1.035) 1.013 Urine Protein (NEG) [...] RADIOLOGY - XR CHEST 1 V 09/09 024 Report Impression - Status: SIGNED Entered: 09/09/2021317 [...] 09/09 Sodium Chloride 100 ML IV 09/09 0248 0242 Autonomic Drugs Sig/Ngoc Start time Last Medication Dose Route Stop Time Status Admin Albuterol 2 PUFF STAT STA 09/09 0315 DC 09/09 INH 09/09 031 0345 Electrolytic, Caloric, And Leyda Sig/Ngoc Start time Last Medication Dose Route Stop Time Status Admin Potassium Chloride 40 MEQ X1ED STA 09/09 0314 D C 09/09 PO 09/09 0315 0345 Sodium Chloride 1,000 ML X1ED ONE 09/09 0230 AC 09/09 IV 10/20 1829 0222 Eye, Ear, Nose And Throat (Een Sig/Ngoc Start time Last Medication Dose Route Stop Time Status Admin Oxymetazoline HCl 1 SPRAY X1ED STA 09/09 0224 D C 09/09 NASAL 09/09 022 0307 Dexamethasone Sodium 10 MG X1ED STA 09/09 0223 DC 09/09 Phosphate IV 09/09 022 0243 [...] 100 MG STAT STA 09/09 022 DC 09/09 PO 09/09 022 0308 Patient Discharge Departure Vital Signs/Condition Vital Signs First Documented: Result Date Time Pulse Ox 99 09/09 0209 B/P 106/54 09/09 0209 B/P Mean 71 09/09 020 Temp 36.7 09/09 020 Pulse 103 09/09 0209 Resp 24 09/09 0209 Last Documented: Result Date Time Pulse Ox 100 09/09 040 B/P 107/69 09/09 040 B/P Mean 81 09/09 040 Temp 36.6 09/09 401 Pulse 97 09/09 040 Resp 22 09/09 040 All vital signs available at the time of this en try have been reviewed. Condition Stable, Improved Clinical Impression Clinical Impression Primary Impression: COVID Secondary Impressions: Cough, Fever Time of Impression 0342 Disposition Decision Discharge )( Discharged to Home Yes )( Time 0342 )( Date 09/09/21 Discharge/Care Plan Counseled Regarding [...] COVID-19 Infection - V ideo Referrals Filemon Perkins MD Departure Forms WORK/SCHOOL EXCUSE VARIABLE WORK/SCHOOL [...] physician or other designated or consulting phys ician as outlined in the discharge instructions. The [...] symptoms should prompt an immediate return to [facility] or the closest emergency department or a call to 911. Quality Measures BP F/U for HTN F/u with PCP/other doc 12-Lead ECG for CP Performed documented Preg Test for Women w/Abd Pain Female age 14-50 Smoking Cessation Screened, non user Tobacco Screening/Cessation 18 years or older, D enies tobacco use at 0751 [facility] #:[id number] END OF REPORT 2021-09-09 02:14:00-00:00 [id number] [facility] [address], [place] [address] PATIENT NAME: LAURA HALL ADMIT DATE: 09/09/21 ACCOUNT NO: [id number] ROOM NO: AGE: 26 SEX: F ADMITTING PHYSICIAN: ATTENDING PHYSICIAN: Nicholas Gonzalez MD Order: [id number] Test Reason : CHEST PRESSURE / CODE [...] ECGs available Confirmed by DAYANA ROSAS MD ([id number]) on 09/10/20 8:56:33 PM Referred By: DOES_NOT KNOW Confirmed by:DAYANA GROSS MD at 2056 PATIENT NAME: LAURA HALL 2021-02-20 10:25:00-00:00 [facility] ([facility]) EMERGENCY PROVIDER REPORT REPORT#:[id number] REPORT STATUS: Signed DATE:02/20/21 TIME: 1025 PATIENT: LAURA HALL UNIT #: [id number] ROOM/BED: AGE: 25 SEX: F PCP PHYS: Alexey Yarbrough MD SERVICE AUTHOR: Conrado Hernandez MD * ALL edits or amendments must be made on the Razmir/ForeSee document * HPI-General Illness General Initial Greet [...] (ZOFRAN ODT) 4 MG PO Q12H PRN [place] N N/V Review of Nursing Notes Rev [...] % (Auto) (14.5 - 29.7 %) 23.1 [place] % (Auto) (3.6 - 10.2 %) 6.2 Eos % (Auto) (0.0 - 3.0 %) 0.3 Baso % (Auto) (0.1 - 0.9 %) 0.5 Neut # (Auto) (K/mm3) 6.0 Lymph # (Auto) (K/mm3) 2.0 [place] # (Auto) (K/mm3) 0.5 Eos # (Auto) (K/mm3) 0.03 Baso # (Auto) (K/mm3) 0.0 Urines Urine Color (YELLOW) YELLOW Urine Appearance (CLEAR) Slightly-Cloudy Urine pH (5 - 9) 5.0 Ur Specific [place] (1.001 - 1.035) 1.024 Urine Protein (NEG) [...] 1,000 ML X1ED STA 02/20 1025 DC 02/20 IV 02/20 1026 1112 Gastrointestinal Drugs Sig/Ngoc Start time Last Medication Dose Route Stop Time Status Admin Metoclopramide HCl 10 MG X1ED STA 02/20 1025 DC 02/20 IV 02/20 1026 1113 Patient Discharge Departure [...] Instructions ED Hyperemesis Gravidarum at 0922 RPT #:[id number] END OF REPORT
--- NOTE | 2023-03-19 20:36 | RAD REPORT ---
EXAM DESCRIPTION: US - UPPER EXTREMITY VENOUS UNILATE - 03/19/2023 8:25 pm CLINICAL HISTORY: DEFORMITY COMPARISON: No comparisons FINDINGS: Color Doppler, grayscale, and spectral analysis was performed. The right internal jugular vein, subclavian vein, brachial vein, basilic vein, cephalic vein, radial vein, and ulnar vein were interrogated. Thrombus is present in the right cephalic vein at the antecubital fossa. IMPRESSION: Positive for venous thrombosis in the right cephalic vein.
--- NOTE | 2023-03-19 20:51 | ER ---
Nurse's Notes [facility] Name: Lili Harkins Age: 27 yrs Sex: Female : 1995 Arrival Date: 03/19/2023 Time: 19:15 Bed IW1 Private MD: Diagnosis: Phlebitis and thrombophlebitis of unspecified site Presentation: 03/19 19:33 Chief complaint: Patient states: removed IV from right AC this morning. pain and lg3 swelling from site. Coronavirus screen: Client denies travel out of the [place] in the last 14 days. At this time, the client does not indicate any symptoms associated with coronavirus-19. Ebola Screen: No symptoms or risks identified at this time. Initial Sepsis Screen: Does the patient meet any 2 criteria? No. Patient's initial sepsis screen is negative. Does the patient have a suspected source of infection? No. Patient's initial sepsis screen is negative. Risk Assessment: Do you want to hurt yourself or someone else? Patient reports no desire to harm self or others. Onset of symptoms was March 19, 2023. 19:33 Method Of Arrival: Ambulatory lg3 19:33 Acuity: KAZ 4 lg3 Triage Assessment: 19:35 General: Appears in no apparent distress. comfortable, Behavior is calm, cooperative. lg3 Pain: Complains of pain in right antecubital area. EENT: No deficits noted. No signs and/or symptoms were reported regarding the EENT system. Neuro: No deficits noted. Brandt Agitation-Sedation Scale (RASS): 0 - Alert and Calm Level of Consciousness is awake, alert, obeys commands, Oriented to person, place, time, situation. Cardiovascular: No deficits noted. Denies chest pain, shortness of breath. Respiratory: No deficits noted. Airway is patent Respiratory effort is even, unlabored, Respiratory pattern is regular, symmetrical. GI: No deficits noted. No signs and/or symptoms were reported involving the gastrointestinal system. : No deficits noted. No signs and/or symptoms were reported regarding the genitourinary system. Derm: reddening and swelling noted to right AC area. Musculoskeletal: No deficits noted. Circulation, motion, and sensation intact. Range of motion: intact in all extremities. 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 - Social history:: Smoking status: Patient denies any tobacco usage or history of. Patient/guardian denies using alcohol, street drugs. Screenin:07 [facility] ED Fall Risk Assessment (Adult) History of falling in the last 3 months, lg3 including since admission No falls in past 3 months (0 pts). Abuse screen: Denies threats or abuse. Denies injuries from another. Nutritional screening: No deficits noted. Tuberculosis screening: No symptoms or risk factors identified. Assessment: 21:09 General: see triage assessment . lg3 Vital Signs: 19:33 BP 124 / 86; Pulse 81; Resp 17 S; Temp 98.6(TE); Pulse Ox 100% on R/A; Weight 61.23 kg; lg3 Height 5 ft. 5 in. ; 19:33 Body Mass Index 22.46 (61.23 kg, 165.1 cm) lg3 ED Course: 19:19 Patient arrived in ED. bp1 19:21 Donnie Mueller MD is Attending Physician. bs3 19:35 Triage completed. lg3 19:35 Arm band placed on left wrist. lg3 20:27 UPPER EXTREMITY VENOUS UNILATE In Process Unspecified. EDMS 21:09 Patient has correct armband on for positive identification. lg3 21:09 No provider procedures requiring assistance completed. Patient did not have IV access lg3 during this emergency room visit. Administered Medications: No medications were administered Medication: 21:09 VIS not applicable for this client. lg3 Outcome: 20:51 Discharge ordered by . bs3 21:09 Discharged to home ambulatory. lg3 21:09 Condition: stable 21:09 Discharge instructions given to patient, Instructed on discharge instructions, follow up and referral plans. Demonstrated understanding of instructions, follow-up care. 21:10 Patient left the ED. lg3 Signatures: Dispatcher [employer] EDMS Renetta Gage, RN RN lg3 Pania[place], SofyDonnie Isbell, MD bs3
--- NOTE | 2023-03-19 20:51 | EDPHYS ---
Physician Documentation [facility] Name: Lili Harkins Age: 27 yrs Sex: Female : 1995 Arrival Date: 03/19/2023 Time: 19:15 Bed IW1 Private MD: ED Physician Donnie Mueller HPI: 03/19 19:31 This 27 yrs old Female presents to ER via Unassigned with complaints of Arm bs3 Pain, Right arm. 19:31 27-year-old female currently presents with right arm pain she had an IV in her bs3 antecubital fossa for the past 3 to 4 days as she is getting home infusions for hyperemesis however she developed pain and swelling and a little bit of redness at the area she denies fevers chills difficulty breathing or anything else bothering her she took out the IV earlier today. 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 - Social history:: Smoking status: Patient denies any tobacco usage or history of. Patient/guardian denies using alcohol, street drugs. ROS: 19:31 Constitutional: Negative for fever, chills bs3 19:31 All other systems are negative. Exam: 19:31 Constitutional: This is a well developed, well nourished patient who is awake, alert, bs3 and in no acute distress. Head/Face: Normocephalic, atraumatic. ENT: mmm, no posterior phyarngeal erythema Neck: Trachea midline, no thyromegaly, no neck stiffness Chest/axilla: Normal chest wall appearance and motion. Nontender with no deformity. No lesions are appreciated. Cardiovascular: Regular rate and rhythm with a normal S1 and S2. symmetric pulses in upper extremities Respiratory: Lungs have equal breath sounds bilaterally, clear to auscultation, no respiratory distress Abdomen/GI: Soft, non-tender, no rebound or guarding MS/ Extremity: Right upper extremity AC mild tenderness mild erythema Neuro: Awake and alert, GCS 15, oriented to person, place, time, and situation. Cranial nerves II-XII grossly intact. Motor strength 5/5 in all extremities. Sensory grossly intact. Vital Signs: 19:33 BP 124 / 86; Pulse 81; Resp 17 S; Temp 98.6(TE); Pulse Ox 100% on R/A; Weight 61.23 kg; lg3 Height 5 ft. 5 in. ; 19:33 Body Mass Index 22.46 (61.23 kg, 165.1 cm) lg3 MDM: 19:21 Patient medically screened. bs3 19:31 Differential diagnosis: Thrombophlebitis versus deep vein thrombosis. Data reviewed: bs3 vital signs, nurses notes. 20:50 ED course: Patient with thrombosis of the cephalic vein which is a superficial vein bs3 advise follow-up with primary care and OPERATING ENGINEER advised warm compresses return precautions given. 03/19 20:04 Order name: UPPER EXTREMITY VENOUS UNILATE; Complete Time: 20:49 EDMS Administered Medications: No medications were administered Disposition Summary: 03/19/23 20:51 Discharge Ordered Location: Home bs3 Problem: new bs3 Symptoms: have improved bs3 Condition: Stable bs3 Diagnosis - Phlebitis and thrombophlebitis of unspecified site bs3 Followup: bs3 - With: Private Physician - When: 1 week - Reason: Re-evaluation by your physician Discharge Instructions: - Discharge Summary Sheet bs3 - Thrombophlebitis bs3 Forms: - Medication Reconciliation Form bs3 - Thank You Letter bs3 - Antibiotic Education bs3 - Prescription Opioid Use bs3 Signatures: Dispatcher [employer] EDMS Renetta Gage, RN RN lg3 Donnie Mueller MD MD bs3 Corrections: (The following items were deleted from the chart) 20:04 19:31 Extremity Venous Uni [email or web address] ordered. EDMS EDMS
[2023-03-19 21:33] VITALS: BP 124/86; TEMP 98.6; O2SAT 100
== END 2023-03-19 21:10 | disposition home or self-care (01) ==
LOC: ER 19:15
DX: O22.20 Superficial thrombophlebitis in pregnancy, unspecified trimester (principal); I80.01 Phlebitis and thrombophlebitis of superficial vessels of right lower extremity; Z3A.00 Weeks of gestation of pregnancy not specified; Z88.5 Allergy status to narcotic agent
CPT/HCPCS: 93971; 99283